=== PATIENT | male | born 1990 | race Caucasian/White ===

== ENCOUNTER 2016-04-27 16:59 | Emergency (ER) | payer OTHER ==
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
--- NOTE | 2016-04-28 08:52 | ED DISCHARGE INSTRUCTIONS ---
Patient: PRASAD SHERWOOD General Instructions [facility] VisitID: [id number] [place] [address] 26y, M Registration Date/Time: 04/27/2016 Moderate dental pain. INSTRUCTIONS Warnings: GENERAL WARNINGS: Return or contact your physician immediately if your condition worsens or changes unexpectedly, if not improving as expected, or if other problems arise. Specifically return if problem worsens. Prescription Medications: Penicillin V 500mg: take 1 tab orally every 6 hours for 10 days. Dispense forty (40). No refill Ultram 50 mg tablets: take 1-2 orally every 6 hours as needed for pain. Dispense twenty (20). No refills. Substitution is permissible. Follow-up: Follow up with a dentist in about three days even if well. Call for an appointment. Summary of care provided to patient. Understanding of the discharge instructions verbalized by patient. ADDITIONAL INFORMATION Dental Pain A crack or cavity in the tooth, which exposes the sensitive inner area of the tooth can cause tooth pain. An infection in the gum or the root of the tooth can cause pain and swelling. The pain is often made worse by drinking hot or cold fluids, or biting on hard foods. Pain may spread from the tooth to the ear or jaw on the same side. Home Care: Avoid hot and cold foods and liquids since your tooth may be sensitive to temperature changes. If your tooth is chipped or cracked, or if there is a large open cavity, apply OIL OF CLOVES (available fjij-yjj-hlegrsy in drug stores) directly to the tooth to reduce pain. Some pharmacies carry an zqgl-hds-xceixva "toothache kit." This contains a paste, which can be applied over the exposed tooth to decrease sensitivity. A cold pack on your jaw over the sore area may help reduce pain. You may use acetaminophen (Tylenol) or ibuprofen (Motrin, Advil) to control pain, unless another medicine was prescribed. [ NOTE: If you have chronic liver or kidney disease or ever had a stomach ulcer or GI bleeding, talk with your doctor before using these medicines.] If you have signs of an infection, an antibiotic will be given. Take it as directed. Follow-Up as directed with a dentist. Your pain may go away with the treatment given. However, only a dentist can fully evaluate and treat the cause and prevent the pain from coming back again. TOOTHACHE IS A SIGN OF DISEASE IN YOUR TOOTH AND SHOULD BE EXAMINED AND TREATED BY A DENTIST. Get Prompt Medical Attention if any of the following occur: Your face becomes swollen or red Pain worsens or spreads to the neck Fever over 100.4 F (38.0 C) Unusual drowsiness; headache or stiff neck; weakness or fainting Pus drains from the tooth Difficulty swallowing or breathing Penicillin V Potassium Oral tablet What is this medicine? PENICILLIN V (pen i SILL in V) is a penicillin antibiotic. It is used to treat certain kinds of bacterial infections. It will not work for colds, flu, or other viral infections. How should I use this medicine? Take this medicine by mouth with a full glass of water. Follow the directions on the prescription label. Take your medicine at regular intervals. Do not take your medicine more often than directed. Take all of your medicine as directed even if you think your are better. Do not skip doses or stop your medicine early. Talk to your twisting frame changer regarding the use of this medicine in children. While this drug may be prescribed for selected conditions, precautions do apply. What side effects may I notice from receiving this medicine? Side effects that you should report to your doctor or health interior plant caretaker as soon as possible: allergic reactions like skin rash or hives, swelling of the face, lips, or tongue breathing problems fever new symptoms of infection redness, blistering, peeling or loosening of the skin, including inside the mouth unusually weak or tired Side effects that usually do not require medical attention (report to your doctor or health interior plant caretaker if they continue or are bothersome): diarrhea headache nausea, vomiting sore mouth or tongue stomach upset What may interact with this medicine? control pills methotrexate other antibiotics probenecid some vaccines What if I miss a dose? If you miss a dose, take it as soon as you can. If it is almost time for your next dose, take only that dose. Do not take double or extra doses. Where should I keep my medicine? Keep out of the reach of children. Store at room temperature between 15 and 30 degrees C (59 and 86 degrees F). Keep container tightly closed. Throw away any unused medicine after the expiration date. What should I tell my health care provider before I take this medicine? They need to know if you have any of these conditions: asthma bowel disease, like colitis eczema kidney disease an unusual or allergic reaction to penicillin, cephalosporins, other antibiotics or medicines, foods, tartrazine or other dyes, or preservatives or trying to get breast-feeding What should I watch for while using this medicine? Tell your doctor or health interior plant caretaker if your symptoms do not improve. Do not treat diarrhea with over the counter products. Contact your doctor if you have diarrhea that lasts more than 2 days or if it is severe and watery. If you have diabetes, you may get a false-positive result for sugar in your urine. Check with your doctor or health interior plant caretaker. control pills may not work properly while you are taking this medicine. Talk to your doctor about using an extra method of control. Tramadol Hydrochloride Oral tablet What is this medicine? TRAMADOL (TRA ma dole) is a pain reliever. It is used to treat moderate to severe pain in adults. How should I use this medicine? Take this medicine by mouth with a full glass of water. Follow the directions on the prescription label. If the medicine upsets your stomach, take it with food or milk. Do not take more medicine than you are told to take. Talk to your twisting frame changer regarding the use of this medicine in children. Special care may be needed. What side effects may I notice from receiving this medicine? Side effects that you should report to your doctor or health interior plant caretaker as soon as possible: allergic reactions like skin rash, itching or hives, swelling of the face, lips, or tongue breathing difficulties, wheezing confusion itching light headedness or fainting spells redness, blistering, peeling or loosening of the skin, including inside the mouth seizures Side effects that usually do not require medical attention (report to your doctor or health interior plant caretaker if they continue or are bothersome): constipation dizziness drowsiness headache nausea, vomiting What may interact with this medicine? Do not take this medicine with any of the following medications: MAOIs like Carbex, Eldepryl, Marplan, Nardil, and Parnate This medicine may also interact with the following medications: alcohol or medicines that contain alcohol antihistamines benzodiazepines bupropion carbamazepine or oxcarbazepine clozapine cyclobenzaprine digoxin furazolidone linezolid medicines for depression, anxiety, or psychotic disturbances medicines for migraine headache like almotriptan, eletriptan, frovatriptan, naratriptan, rizatriptan, sumatriptan, zolmitriptan medicines for pain like pentazocine, buprenorphine, butorphanol, meperidine, nalbuphine, and propoxyphene medicines for sleep muscle relaxants naltrexone phenobarbital phenothiazines like perphenazine, thioridazine, chlorpromazine, mesoridazine, fluphenazine, prochlorperazine, promazine, and trifluoperazine procarbazine warfarin What if I miss a dose? If you miss a dose, take it as soon as you can. If it is almost time for your next dose, take only that dose. Do not take double or extra doses. Where should I keep my medicine? Keep out of the reach of children. Store at room temperature between 15 and 30 degrees C (59 and 86 degrees F). Keep container tightly closed. Throw away any unused medicine after the expiration date. What should I tell my health care provider before I take this medicine? They need to know if you have any of these conditions: brain tumor depression drug abuse or addiction head injury if you frequently drink alcohol containing drinks kidney disease or trouble passing urine liver disease lung disease, asthma, or breathing problems seizures or epilepsy suicidal thoughts, plans, or attempt; a previous suicide attempt by you or a family member an unusual or allergic reaction to tramadol, codeine, other medicines, foods, dyes, or preservatives or trying to get breast-feeding What should I watch for while using this medicine? Tell your doctor or health interior plant caretaker if your pain does not go away, if it gets worse, or if you have new or a different type of pain. You may develop tolerance to the medicine. Tolerance means that you will need a higher dose of the medicine for pain relief. Tolerance is normal and is expected if you take this medicine for a long time. Do not suddenly stop taking your medicine because you may develop a severe reaction. Your body becomes used to the medicine. This does NOT mean you are addicted. Addiction is a behavior related to getting and using a drug for a non-medical reason. If you have pain, you have a medical reason to take pain medicine. Your doctor will tell you how much medicine to take. If your doctor wants you to stop the medicine, the dose will be slowly lowered over time to avoid any side effects. You may get drowsy or dizzy. Do not drive, use machinery, or do anything that needs mental alertness until you know how this medicine affects you. Do not stand or sit up quickly, especially if you are an older patient. This reduces the risk of dizzy or fainting spells. Alcohol can increase or decrease the effects of this medicine. Avoid alcoholic drinks. You may have constipation. Try to have a bowel movement at least every 2 to 3 days. If you do not have a bowel movement for 3 days, call your doctor or health interior plant caretaker. Your mouth may get dry. Chewing sugarless gum or sucking hard candy, and drinking plenty of water may help. Contact your doctor if the problem does not go away or is severe. You have been given the following additional information: Dental Pain Penicillin V Potassium Oral tablet Tramadol Hydrochloride Oral tablet (Electronically signed by Nazanin Larsen A.R.N.P. 04/27/2016 19:31)
--- NOTE | 2016-04-28 08:52 | ED MED RECONCILIATION SUMMARY ---
Patient: PRASAD SHERWOOD Medication Reconciliation Report [facility] VisitID: [id number] [address] [place] [address] 26y, M Registration Date/Time: 04/27/2016 Weight: 92.9 kg Height/Length: 68 in. BMI: 31.1 ALLERGIES: No Known Drug Allergy The patient's Home Medications are listed below: NONE. The source(s) of the original Home Medication information: Not obtained. The following Medications were given to the patient in the Emergency Department: None. The following Medications were prescribed to the patient: Penicillin V 500mg: take 1 tab orally every 6 hours for 10 days. Dispense forty (40). No refill -- Nazanin Larsen A.R.N.P. Ultram 50 mg tablets: take 1-2 orally every 6 hours as needed for pain. Dispense twenty (20). No refills. Substitution is permissible. -- Nazanin Larsen A.R.N.P.
--- NOTE | 2016-04-28 08:52 | ED MAR SUMMARY ---
..... Medication Administration Record Merged With [facility] [address] [place], [place] [id number] Patient: PRASAD SHERWOOD Visit ID: [id number] 26y, M Weight: 92.9 kg Height/Length: 68 in BMI: 31.1 ALLERGIES: No Known Drug Allergy
--- NOTE | 2016-04-28 08:52 | ED DISCHARGE INSTRUCTIONS ---
Patient: PRASAD SHERWOOD General Instructions [facility] VisitID: [id number] [place] [address] 26y, M Registration Date/Time: 04/27/2016 Moderate dental pain. INSTRUCTIONS Warnings: GENERAL WARNINGS: Return or contact your physician immediately if your condition worsens or changes unexpectedly, if not improving as expected, or if other problems arise. Specifically return if problem worsens. Prescription Medications: Penicillin V 500mg: take 1 tab orally every 6 hours for 10 days. Dispense forty (40). No refill Ultram 50 mg tablets: take 1-2 orally every 6 hours as needed for pain. Dispense twenty (20). No refills. Substitution is permissible. Follow-up: Follow up with a dentist in about three days even if well. Call for an appointment. Summary of care provided to patient. Understanding of the discharge instructions verbalized by patient. ADDITIONAL INFORMATION Dental Pain A crack or cavity in the tooth, which exposes the sensitive inner area of the tooth can cause tooth pain. An infection in the gum or the root of the tooth can cause pain and swelling. The pain is often made worse by drinking hot or cold fluids, or biting on hard foods. Pain may spread from the tooth to the ear or jaw on the same side. Home Care: Avoid hot and cold foods and liquids since your tooth may be sensitive to temperature changes. If your tooth is chipped or cracked, or if there is a large open cavity, apply OIL OF CLOVES (available jywz-bnj-uddjiwa in drug stores) directly to the tooth to reduce pain. Some pharmacies carry an zfkh-omg-vpwlwui "toothache kit." This contains a paste, which can be applied over the exposed tooth to decrease sensitivity. A cold pack on your jaw over the sore area may help reduce pain. You may use acetaminophen (Tylenol) or ibuprofen (Motrin, Advil) to control pain, unless another medicine was prescribed. [ NOTE: If you have chronic liver or kidney disease or ever had a stomach ulcer or GI bleeding, talk with your doctor before using these medicines.] If you have signs of an infection, an antibiotic will be given. Take it as directed. Follow-Up as directed with a dentist. Your pain may go away with the treatment given. However, only a dentist can fully evaluate and treat the cause and prevent the pain from coming back again. TOOTHACHE IS A SIGN OF DISEASE IN YOUR TOOTH AND SHOULD BE EXAMINED AND TREATED BY A DENTIST. Get Prompt Medical Attention if any of the following occur: Your face becomes swollen or red Pain worsens or spreads to the neck Fever over 100.4 F (38.0 C) Unusual drowsiness; headache or stiff neck; weakness or fainting Pus drains from the tooth Difficulty swallowing or breathing Penicillin V Potassium Oral tablet What is this medicine? PENICILLIN V (pen i SILL in V) is a penicillin antibiotic. It is used to treat certain kinds of bacterial infections. It will not work for colds, flu, or other viral infections. How should I use this medicine? Take this medicine by mouth with a full glass of water. Follow the directions on the prescription label. Take your medicine at regular intervals. Do not take your medicine more often than directed. Take all of your medicine as directed even if you think your are better. Do not skip doses or stop your medicine early. Talk to your warp tier regarding the use of this medicine in children. While this drug may be prescribed for selected conditions, precautions do apply. What side effects may I notice from receiving this medicine? Side effects that you should report to your doctor or health caregivers non medical as soon as possible: allergic reactions like skin rash or hives, swelling of the face, lips, or tongue breathing problems fever new symptoms of infection redness, blistering, peeling or loosening of the skin, including inside the mouth unusually weak or tired Side effects that usually do not require medical attention (report to your doctor or health caregivers non medical if they continue or are bothersome): diarrhea headache nausea, vomiting sore mouth or tongue stomach upset What may interact with this medicine? control pills methotrexate other antibiotics probenecid some vaccines What if I miss a dose? If you miss a dose, take it as soon as you can. If it is almost time for your next dose, take only that dose. Do not take double or extra doses. Where should I keep my medicine? Keep out of the reach of children. Store at room temperature between 15 and 30 degrees C (59 and 86 degrees F). Keep container tightly closed. Throw away any unused medicine after the expiration date. What should I tell my health care provider before I take this medicine? They need to know if you have any of these conditions: asthma bowel disease, like colitis eczema kidney disease an unusual or allergic reaction to penicillin, cephalosporins, other antibiotics or medicines, foods, tartrazine or other dyes, or preservatives or trying to get breast-feeding What should I watch for while using this medicine? Tell your doctor or health caregivers non medical if your symptoms do not improve. Do not treat diarrhea with over the counter products. Contact your doctor if you have diarrhea that lasts more than 2 days or if it is severe and watery. If you have diabetes, you may get a false-positive result for sugar in your urine. Check with your doctor or health caregivers non medical. control pills may not work properly while you are taking this medicine. Talk to your doctor about using an extra method of control. Tramadol Hydrochloride Oral tablet What is this medicine? TRAMADOL (TRA ma dole) is a pain reliever. It is used to treat moderate to severe pain in adults. How should I use this medicine? Take this medicine by mouth with a full glass of water. Follow the directions on the prescription label. If the medicine upsets your stomach, take it with food or milk. Do not take more medicine than you are told to take. Talk to your warp tier regarding the use of this medicine in children. Special care may be needed. What side effects may I notice from receiving this medicine? Side effects that you should report to your doctor or health caregivers non medical as soon as possible: allergic reactions like skin rash, itching or hives, swelling of the face, lips, or tongue breathing difficulties, wheezing confusion itching light headedness or fainting spells redness, blistering, peeling or loosening of the skin, including inside the mouth seizures Side effects that usually do not require medical attention (report to your doctor or health caregivers non medical if they continue or are bothersome): constipation dizziness drowsiness headache nausea, vomiting What may interact with this medicine? Do not take this medicine with any of the following medications: MAOIs like Carbex, Eldepryl, Marplan, Nardil, and Parnate This medicine may also interact with the following medications: alcohol or medicines that contain alcohol antihistamines benzodiazepines bupropion carbamazepine or oxcarbazepine clozapine cyclobenzaprine digoxin furazolidone linezolid medicines for depression, anxiety, or psychotic disturbances medicines for migraine headache like almotriptan, eletriptan, frovatriptan, naratriptan, rizatriptan, sumatriptan, zolmitriptan medicines for pain like pentazocine, buprenorphine, butorphanol, meperidine, nalbuphine, and propoxyphene medicines for sleep muscle relaxants naltrexone phenobarbital phenothiazines like perphenazine, thioridazine, chlorpromazine, mesoridazine, fluphenazine, prochlorperazine, promazine, and trifluoperazine procarbazine warfarin What if I miss a dose? If you miss a dose, take it as soon as you can. If it is almost time for your next dose, take only that dose. Do not take double or extra doses. Where should I keep my medicine? Keep out of the reach of children. Store at room temperature between 15 and 30 degrees C (59 and 86 degrees F). Keep container tightly closed. Throw away any unused medicine after the expiration date. What should I tell my health care provider before I take this medicine? They need to know if you have any of these conditions: brain tumor depression drug abuse or addiction head injury if you frequently drink alcohol containing drinks kidney disease or trouble passing urine liver disease lung disease, asthma, or breathing problems seizures or epilepsy suicidal thoughts, plans, or attempt; a previous suicide attempt by you or a family member an unusual or allergic reaction to tramadol, codeine, other medicines, foods, dyes, or preservatives or trying to get breast-feeding What should I watch for while using this medicine? Tell your doctor or health caregivers non medical if your pain does not go away, if it gets worse, or if you have new or a different type of pain. You may develop tolerance to the medicine. Tolerance means that you will need a higher dose of the medicine for pain relief. Tolerance is normal and is expected if you take this medicine for a long time. Do not suddenly stop taking your medicine because you may develop a severe reaction. Your body becomes used to the medicine. This does NOT mean you are addicted. Addiction is a behavior related to getting and using a drug for a non-medical reason. If you have pain, you have a medical reason to take pain medicine. Your doctor will tell you how much medicine to take. If your doctor wants you to stop the medicine, the dose will be slowly lowered over time to avoid any side effects. You may get drowsy or dizzy. Do not drive, use machinery, or do anything that needs mental alertness until you know how this medicine affects you. Do not stand or sit up quickly, especially if you are an older patient. This reduces the risk of dizzy or fainting spells. Alcohol can increase or decrease the effects of this medicine. Avoid alcoholic drinks. You may have constipation. Try to have a bowel movement at least every 2 to 3 days. If you do not have a bowel movement for 3 days, call your doctor or health caregivers non medical. Your mouth may get dry. Chewing sugarless gum or sucking hard candy, and drinking plenty of water may help. Contact your doctor if the problem does not go away or is severe. You have been given the following additional information: Dental Pain Penicillin V Potassium Oral tablet Tramadol Hydrochloride Oral tablet (Electronically signed by Nazanin Larsen A.R.N.P. 04/27/2016 19:31)
--- NOTE | 2016-04-28 08:52 | ED MAR SUMMARY ---
..... Medication Administration Record [facility] [address] [place], [place] [id number] Patient: PRASAD SHERWOOD Visit ID: [id number] 26y, M Weight: 92.9 kg Height/Length: 68 in BMI: 31.1 ALLERGIES: No Known Drug Allergy
--- NOTE | 2016-04-28 08:52 | ED MED RECONCILIATION SUMMARY ---
Patient: PRASAD SHERWOOD Medication Reconciliation Report [facility] VisitID: [id number] [address] [place] [address] 26y, M Registration Date/Time: 04/27/2016 Weight: 92.9 kg Height/Length: 68 in. BMI: 31.1 ALLERGIES: No Known Drug Allergy The patient's Home Medications are listed below: NONE. The source(s) of the original Home Medication information: Not obtained. The following Medications were given to the patient in the Emergency Department: None. The following Medications were prescribed to the patient: Penicillin V 500mg: take 1 tab orally every 6 hours for 10 days. Dispense forty (40). No refill -- Nazanin Larsen A.R.N.P. Ultram 50 mg tablets: take 1-2 orally every 6 hours as needed for pain. Dispense twenty (20). No refills. Substitution is permissible. -- Nazanin Larsen A.R.N.P.
== END 2016-04-27 17:22 | disposition home or self-care (01) ==
LOC: ED SRH 16:59
DX: K08.89 Other specified disorders of teeth and supporting structures (principal); F17.200 Nicotine dependence, unspecified, uncomplicated

== ENCOUNTER 2016-05-19 17:35 | Emergency (ER) | payer OTHER ==
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
--- NOTE | 2016-05-19 23:00 | ED MAR SUMMARY ---
..... Medication Administration Record [facility] [address] [place] [id number] Patient: PRASAD SHERWOOD Visit ID: [id number] 26y, M Weight: 108.8 kg Height/Length: 72 in BMI: 32.6 ALLERGIES: No Known Drug Allergy
--- NOTE | 2016-05-19 23:00 | ED MED RECONCILIATION SUMMARY ---
Patient: PRASAD SHERWOOD Medication Reconciliation Report [facility] VisitID: [id number] [place] [address] 26y, M Registration Date/Time: 05/19/2016 Weight: 108.8 kg Height/Length: 72 in. BMI: 32.6 ALLERGIES: No Known Drug Allergy The patient's Home Medications are listed below: THE FOLLOWING MEDICATIONS NEED TO BE RECONCILED: Ibuprofen Oral 800 mg The source(s) of the original Home Medication information: patient The following Medications were given to the patient in the Emergency Department: None. The following Medications were prescribed to the patient: Acetaminophen (available over the counter): take according to label instructions. -- Ian Virk DO Penicillin V 500mg: take 1 tab orally every 6 hours for 10 days. Dispense forty (40). No refill -- Ian Virk DO Ibuprofen 600mg tablets: take 1 tablet orally every 8 hours as needed for pain. Dispense thirty (30). No refills. -- Ian Virk DO Ultram 50 mg tablets: take 1-2 orally every 6 hours as needed for pain. Dispense twenty (20). No refills. Substitution is permissible. -- Ian Virk DO
--- NOTE | 2016-05-19 23:00 | ED DISCHARGE INSTRUCTIONS ---
Patient: PRASAD SHERWOOD General Instructions [facility] VisitID: [id number] [address], [place] [address] 26y, M Registration Date/Time: 05/19/2016 Moderate dental pain. Chronic substance abuse- tobacco (cigarettes), marijuana. No intoxication, anxiety or drug induced mood disorder. INSTRUCTIONS Do not work for two days. Drink plenty of fluids. (Please see the DENTAL REFERRAL LIST). Warnings: Further evaluation is necessary. It is very important to follow up with a physician. SEDATIVE MEDICATION: You were given sedative medication during your visit. Do not drive or operate dangerous machinery. CONTROLLED SUBSTANCE WARNINGS. GENERAL WARNINGS: Return or contact your physician immediately if your condition worsens or changes unexpectedly, if not improving as expected, or if other problems arise. Prescription Medications: Penicillin V 500mg: take 1 tab orally every 6 hours for 10 days. Dispense forty (40). No refill Ibuprofen 600mg tablets: take 1 tablet orally every 8 hours as needed for pain. Dispense thirty (30). No refills. Ultram 50 mg tablets: take 1-2 orally every 6 hours as needed for pain. Dispense twenty (20). No refills. Substitution is permissible. OTC Medications: Acetaminophen (available over the counter): take according to label instructions. Follow-up: Follow up with your doctor at [facility] in [facility] in about three days. Call for the next available appointment. Follow up with a dentist tomorrow. Follow-up with: [facility], , , [address] [place] [address], , [place], ; [facility], , , [address], [facility], [address]; [facility], [facility], , [address] [place] [address] Follow up. Call for the next available appointment. ADDITIONAL INFORMATION Dental Pain A crack or cavity in the tooth, which exposes the sensitive inner area of the tooth can cause tooth pain. An infection in the gum or the root of the tooth can cause pain and swelling. The pain is often made worse by drinking hot or cold fluids, or biting on hard foods. Pain may spread from the tooth to the ear or jaw on the same side. Home Care: Avoid hot and cold foods and liquids since your tooth may be sensitive to temperature changes. If your tooth is chipped or cracked, or if there is a large open cavity, apply OIL OF CLOVES (available lbst-vnc-zjcyctv in drug stores) directly to the tooth to reduce pain. Some pharmacies carry an ibef-hyj-rxshpww "toothache kit." This contains a paste, which can be applied over the exposed tooth to decrease sensitivity. A cold pack on your jaw over the sore area may help reduce pain. You may use acetaminophen (Tylenol) or ibuprofen (Motrin, Advil) to control pain, unless another medicine was prescribed. [ NOTE: If you have chronic liver or kidney disease or ever had a stomach ulcer or GI bleeding, talk with your doctor before using these medicines.] If you have signs of an infection, an antibiotic will be given. Take it as directed. Follow-Up as directed with a dentist. Your pain may go away with the treatment given. However, only a dentist can fully evaluate and treat the cause and prevent the pain from coming back again. TOOTHACHE IS A SIGN OF DISEASE IN YOUR TOOTH AND SHOULD BE EXAMINED AND TREATED BY A DENTIST. Get Prompt Medical Attention if any of the following occur: Your face becomes swollen or red Pain worsens or spreads to the neck Fever over 100.4 F (38.0 C) Unusual drowsiness; headache or stiff neck; weakness or fainting Pus drains from the tooth Difficulty swallowing or breathing Dental Cavity A dental cavity is a pit or crater in the enamel surface of the tooth. This exposes the sensitive inner layer of the tooth and causes pain. If untreated, the cavity will get bigger and may cause an infection or abscess in the root of the tooth. An infection in the tooth is a much more serious problem and may require a root canal or removal of the entire tooth. The tooth pain may be made worse by drinking hot or cold fluids. It may spread from the tooth to the ear or jaw on the same side. Home Care: Avoid hot and cold foods, and liquids since your tooth may be sensitive to temperature changes. If your tooth is chipped or cracked, or if there is a large open cavity, apply OIL OF CLOVES (available bgtf-tew-jzxinfo in drug stores) directly to the tooth to reduce pain. Some pharmacies carry an digv-fvh-qqlwbzt "toothache kit." This contains oil of cloves and a paste, which can be applied over the exposed tooth to decrease sensitivity. An ice pack on your jaw over the sore area may help to reduce pain. You may use acetaminophen (Tylenol) or ibuprofen (Motrin, Advil) to control pain, unless another pain medicine was prescribed. [ NOTE: If you have liver disease or ever had a stomach ulcer, talk with your doctor before using these medicines.] If you have signs of an infection, an antibiotic will be given. Take it as directed. Follow-Up with your dentist as directed. Although your pain may go away with the treatment given, only a dentist can fully evaluate and treat this problem to prevent further tooth damage. Get Prompt Medical Attention if any of the following occur: Redness or swelling of the face Pain worsens or spreads to the neck Fever over 100.5 F (38C) Unusual drowsiness; headache or stiff neck; weakness or fainting Pus drains from the tooth or gum Difficulty swallowing or breathing Marijuana Abuse Marijuana is the most widely used illegal drug in the [place]. It is called by various names such as pot, weed, blunts, grass, reefer, ganja, hash, hashish. It is usually smoked but can be mixed with foods or brewed as a tea. It is sometimes sold with PCP (Karthik Dust) or amphetamine mixed in it. These drugs can cause other harmful side effects. Marijuana can cause the following effects: Changes in mood (stimulated, happy, drowsy, depressed, paranoid) Hallucinations Increased heart rate and blood pressure Increased appetite Time distortion, difficulty concentrating, impaired memory Lung damage (similar to cigarettes with chronic cough, wheezing, frequent colds and bronchitis) You can become psychologically dependent on marijuana. That means the craving to use the drug is emotional or psychological rather than due to physical withdrawal. Is Marijuana Running Your Life? Here are some of the signs: Relying on marijuana to feel good, forget problems, deal with stress or to relax Wanting to be alone most of the time or only with others who use drugs Losing interest in things that used to be important Changes in school or job performance or attendance Spending a lot of time thinking about how to get marijuana Stealing or selling your things so you can buy marijuana Unable to stop using even though you may want to quit Increasing anxiety, anger,or depression Sleeping too much, changes in eating habits (weight loss or gain) Needing to use more to get the same effect Home Care Once you have become addicted to any drug, quitting is hard to do. Most people find they can't quit without help. So, dont try to do this alone. Talk to someone you trust who can support you. Seek professional help. Avoid people and places where drugs are used. That only increases the temptation to use. Follow Up with your doctor or as advised by our staff. For more information or a referral to a treatment center in your area, contact: Your local mental health center or the National Alcohol and Substance Abuse Information Center (392)-737-2533 www.addictioncareEDP [employer] [place] on Alcoholism and Drug Dependence 713-808-YBXE www.ncadd.org Marijuana Anonymous 601-645-4747 www.marijuana-anonymous.org Get Prompt Medical Attention if any of the following occur: You feel extreme depression, fear, anxiety, or anger toward yourself or others You feel out of control You feel that you may try to harm yourself or another Penicillin V Potassium Oral tablet What is this medicine? PENICILLIN V (pen i SILL in V) is a penicillin antibiotic. It is used to treat certain kinds of bacterial infections. It will not work for colds, flu, or other viral infections. How should I use this medicine? Take this medicine by mouth with a full glass of water. Follow the directions on the prescription label. Take your medicine at regular intervals. Do not take your medicine more often than directed. Take all of your medicine as directed even if you think your are better. Do not skip doses or stop your medicine early. Talk to your optometrist regarding the use of this medicine in children. While this drug may be prescribed for selected conditions, precautions do apply. What side effects may I notice from receiving this medicine? Side effects that you should report to your doctor or health behavioral health care manager as soon as possible: allergic reactions like skin rash or hives, swelling of the face, lips, or tongue breathing problems fever new symptoms of infection redness, blistering, peeling or loosening of the skin, including inside the mouth unusually weak or tired Side effects that usually do not require medical attention (report to your doctor or health behavioral health care manager if they continue or are bothersome): diarrhea headache nausea, vomiting sore mouth or tongue stomach upset What may interact with this medicine? control pills methotrexate other antibiotics probenecid some vaccines What if I miss a dose? If you miss a dose, take it as soon as you can. If it is almost time for your next dose, take only that dose. Do not take double or extra doses. Where should I keep my medicine? Keep out of the reach of children. Store at room temperature between 15 and 30 degrees C (59 and 86 degrees F). Keep container tightly closed. Throw away any unused medicine after the expiration date. What should I tell my health care provider before I take this medicine? They need to know if you have any of these conditions: asthma bowel disease, like colitis eczema kidney disease an unusual or allergic reaction to penicillin, cephalosporins, other antibiotics or medicines, foods, tartrazine or other dyes, or preservatives or trying to get breast-feeding What should I watch for while using this medicine? Tell your doctor or health behavioral health care manager if your symptoms do not improve. Do not treat diarrhea with over the counter products. Contact your doctor if you have diarrhea that lasts more than 2 days or if it is severe and watery. If you have diabetes, you may get a false-positive result for sugar in your urine. Check with your doctor or health behavioral health care manager. control pills may not work properly while you are taking this medicine. Talk to your doctor about using an extra method of control. Ibuprofen Oral tablet What is this medicine? IBUPROFEN (eye BYOO proe fen) is a non-steroidal anti-inflammatory drug (NSAID). It is used for dental pain, fever, headaches or migraines, osteoarthritis, rheumatoid arthritis, or painful monthly periods. It can also relieve minor aches and pains caused by a cold, flu, or sore throat. How should I use this medicine? Take this medicine by mouth with a glass of water. Follow the directions on the prescription label. Take this medicine with food if your stomach gets upset. Try to not lie down for at least 10 minutes after you take the medicine. Take your medicine at regular intervals. Do not take your medicine more often than directed. A special MedGuide will be given to you by the pharmacist with each prescription and refill. Be sure to read this information carefully each time. Talk to your optometrist regarding the use of this medicine in children. Special care may be needed. What side effects may I notice from receiving this medicine? Side effects that you should report to your doctor or health behavioral health care manager as soon as possible: allergic reactions like skin rash, itching or hives, swelling of the face, lips, or tongue black or bloody stools, blood in the urine or in vomit breathing problems changes in vision chest pain general ill feeling or flu-like symptoms nausea or vomiting redness, blistering, peeling or loosening of the skin, including inside the mouth slurred speech or weakness on one side of the body stomach pain unexplained weight gain or swelling unusually weak or tired yellowing of eyes or skin Side effects that usually do not require medical attention (report to your doctor or health behavioral health care manager if they continue or are bothersome): constipation or diarrhea dizziness gas or heartburn stomach upset What may interact with this medicine? Do not take this medicine with any of the following medications: cidofovir ketorolac methotrexate pemetrexed This medicine may also interact with the following medications: alcohol aspirin diuretics lithium other drugs for inflammation like prednisone warfarin What if I miss a dose? If you miss a dose, take it as soon as you can. If it is almost time for your next dose, take only that dose. Do not take double or extra doses. Where should I keep my medicine? Keep out of the reach of children. Store at room temperature between 15 and 30 degrees C (59 and 86 degrees F). Keep container tightly closed. Throw away any unused medicine after the expiration date. What should I tell my health care provider before I take this medicine? They need to know if you have any of these conditions: asthma cigarette smoker drink more than 3 alcohol containing drinks a day heart disease or circulation problems such as heart failure or leg edema (fluid retention) high blood pressure kidney disease liver disease stomach bleeding or ulcers an unusual or allergic reaction to ibuprofen, aspirin, other NSAIDS, other medicines, foods, dyes, or preservatives or trying to get breast-feeding What should I watch for while using this medicine? Tell your doctor or healthcare professional if your symptoms do not start to get better or if they get worse. This medicine does not prevent heart attack or stroke. In fact, this medicine may increase the chance of a heart attack or stroke. The chance may increase with longer use of this medicine and in people who have heart disease. If you take aspirin to prevent heart attack or stroke, talk with your doctor or health behavioral health care manager. Do not take other medicines that contain aspirin, ibuprofen, or naproxen with this medicine. Side effects such as stomach upset, nausea, or ulcers may be more likely to occur. Many medicines available without a prescription should not be taken with this medicine. This medicine can cause ulcers and bleeding in the stomach and intestines at any time during treatment. Ulcers and bleeding can happen without warning symptoms and can cause . To reduce your risk, do not smoke cigarettes or drink alcohol while you are taking this medicine. You may get drowsy or dizzy. Do not drive, use machinery, or do anything that needs mental alertness until you know how this medicine affects you. Do not stand or sit up quickly, especially if you are an older patient. This reduces the risk of dizzy or fainting spells. This medicine can cause you to bleed more easily. Try to avoid damage to your teeth and gums when you brush or floss your teeth. Tramadol Hydrochloride Oral tablet What is this medicine? TRAMADOL (TRA ma dole) is a pain reliever. It is used to treat moderate to severe pain in adults. How should I use this medicine? Take this medicine by mouth with a full glass of water. Follow the directions on the prescription label. If the medicine upsets your stomach, take it with food or milk. Do not take more medicine than you are told to take. Talk to your optometrist regarding the use of this medicine in children. Special care may be needed. What side effects may I notice from receiving this medicine? Side effects that you should report to your doctor or health behavioral health care manager as soon as possible: allergic reactions like skin rash, itching or hives, swelling of the face, lips, or tongue breathing difficulties, wheezing confusion itching light headedness or fainting spells redness, blistering, peeling or loosening of the skin, including inside the mouth seizures Side effects that usually do not require medical attention (report to your doctor or health behavioral health care manager if they continue or are bothersome): constipation dizziness drowsiness headache nausea, vomiting What may interact with this medicine? Do not take this medicine with any of the following medications: MAOIs like Carbex, Eldepryl, Marplan, Nardil, and Parnate This medicine may also interact with the following medications: alcohol or medicines that contain alcohol antihistamines benzodiazepines bupropion carbamazepine or oxcarbazepine clozapine cyclobenzaprine digoxin furazolidone linezolid medicines for depression, anxiety, or psychotic disturbances medicines for migraine headache like almotriptan, eletriptan, frovatriptan, naratriptan, rizatriptan, sumatriptan, zolmitriptan medicines for pain like pentazocine, buprenorphine, butorphanol, meperidine, nalbuphine, and propoxyphene medicines for sleep muscle relaxants naltrexone phenobarbital phenothiazines like perphenazine, thioridazine, chlorpromazine, mesoridazine, fluphenazine, prochlorperazine, promazine, and trifluoperazine procarbazine warfarin What if I miss a dose? If you miss a dose, take it as soon as you can. If it is almost time for your next dose, take only that dose. Do not take double or extra doses. Where should I keep my medicine? Keep out of the reach of children. Store at room temperature between 15 and 30 degrees C (59 and 86 degrees F). Keep container tightly closed. Throw away any unused medicine after the expiration date. What should I tell my health care provider before I take this medicine? They need to know if you have any of these conditions: brain tumor depression drug abuse or addiction head injury if you frequently drink alcohol containing drinks kidney disease or trouble passing urine liver disease lung disease, asthma, or breathing problems seizures or epilepsy suicidal thoughts, plans, or attempt; a previous suicide attempt by you or a family member an unusual or allergic reaction to tramadol, codeine, other medicines, foods, dyes, or preservatives or trying to get breast-feeding What should I watch for while using this medicine? Tell your doctor or health behavioral health care manager if your pain does not go away, if it gets worse, or if you have new or a different type of pain. You may develop tolerance to the medicine. Tolerance means that you will need a higher dose of the medicine for pain relief. Tolerance is normal and is expected if you take this medicine for a long time. Do not suddenly stop taking your medicine because you may develop a severe reaction. Your body becomes used to the medicine. This does NOT mean you are addicted. Addiction is a behavior related to getting and using a drug for a non-medical reason. If you have pain, you have a medical reason to take pain medicine. Your doctor will tell you how much medicine to take. If your doctor wants you to stop the medicine, the dose will be slowly lowered over time to avoid any side effects. You may get drowsy or dizzy. Do not drive, use machinery, or do anything that needs mental alertness until you know how this medicine affects you. Do not stand or sit up quickly, especially if you are an older patient. This reduces the risk of dizzy or fainting spells. Alcohol can increase or decrease the effects of this medicine. Avoid alcoholic drinks. You may have constipation. Try to have a bowel movement at least every 2 to 3 days. If you do not have a bowel movement for 3 days, call your doctor or health behavioral health care manager. Your mouth may get dry. Chewing sugarless gum or sucking hard candy, and drinking plenty of water may help. Contact your doctor if the problem does not go away or is severe. Acetaminophen Oral tablet What is this medicine? ACETAMINOPHEN (a set a TETE moraima fen) is a pain reliever. It is used to treat mild pain and fever. How should I use this medicine? Take this medicine by mouth with a glass of water. Follow the directions on the package or prescription label. Take your medicine at regular intervals. Do not take your medicine more often than directed. Talk to your optometrist regarding the use of this medicine in children. While this drug may be prescribed for children as young as 6 years of age for selected conditions, precautions do apply. What side effects may I notice from receiving this medicine? Side effects that you should report to your doctor or health behavioral health care manager as soon as possible: allergic reactions like skin rash, itching or hives, swelling of the face, lips, or tongue breathing problems fever or sore throat redness, blistering, peeling or loosening of the skin, including inside the mouth trouble passing urine or change in the amount of urine unusual bleeding or bruising unusually weak or tired yellowing of the eyes or skin Side effects that usually do not require medical attention (report to your doctor or health behavioral health care manager if they continue or are bothersome): headache nausea, stomach upset What may interact with this medicine? alcohol imatinib isoniazid other medicines with acetaminophen What if I miss a dose? If you miss a dose, take it as soon as you can. If it is almost time for your next dose, take only that dose. Do not take double or extra doses. Where should I keep my medicine? Keep out of reach of children. Store at room temperature between 20 and 25 degrees C (68 and 77 degrees F). Protect from moisture and heat. Throw away any unused medicine after the expiration date. What should I tell my health care provider before I take this medicine? They need to know if you have any of these conditions: if you frequently drink alcohol containing drinks liver disease an unusual or allergic reaction to acetaminophen, other medicines, foods, dyes or preservatives or trying to get breast-feeding What should I watch for while using this medicine? Tell your doctor or health behavioral health care manager if the pain lasts more than 10 days (5 days for children), if it gets worse, or if there is a new or different kind of pain. Also, check with your doctor if a fever lasts for more than 3 days. Do not take other medicines that contain acetaminophen with this medicine. Always read labels carefully. If you have questions, ask your doctor or pharmacist. If you take too much acetaminophen get medical help right away. Too much acetaminophen can be very dangerous and cause liver damage. Even if you do not have symptoms, it is important to get help right away. You have been given the following additional information: Dental Pain Dental Cavity Marijuana Abuse Penicillin V Potassium Oral tablet Ibuprofen Oral tablet Tramadol Hydrochloride Oral tablet Acetaminophen Oral tablet Do not work for two days. (Electronically signed by Ian Virk DO 05/19/2016 22:27)
--- NOTE | 2016-05-19 23:00 | ED MAR SUMMARY ---
..... Medication Administration Record [facility] [address], [place] [id number] Patient: PRASAD SHERWOOD Visit ID: [id number] 26y, M Weight: 108.8 kg Height/Length: 72 in BMI: 32.6 ALLERGIES: No Known Drug Allergy
--- NOTE | 2016-05-19 23:00 | ED MED RECONCILIATION SUMMARY ---
Patient: PRASAD SHERWOOD Medication Reconciliation Report [facility] VisitID: [id number] [place] [address] 26y, M Registration Date/Time: 05/19/2016 Weight: 108.8 kg Height/Length: 72 in. BMI: 32.6 ALLERGIES: No Known Drug Allergy The patient's Home Medications are listed below: THE FOLLOWING MEDICATIONS NEED TO BE RECONCILED: Ibuprofen Oral 800 mg The source(s) of the original Home Medication information: patient The following Medications were given to the patient in the Emergency Department: None. The following Medications were prescribed to the patient: Acetaminophen (available over the counter): take according to label instructions. -- Ian Virk DO Penicillin V 500mg: take 1 tab orally every 6 hours for 10 days. Dispense forty (40). No refill -- Ian Virk DO Ibuprofen 600mg tablets: take 1 tablet orally every 8 hours as needed for pain. Dispense thirty (30). No refills. -- Ian Virk DO Ultram 50 mg tablets: take 1-2 orally every 6 hours as needed for pain. Dispense twenty (20). No refills. Substitution is permissible. -- Ian Virk DO
--- NOTE | 2016-05-19 23:00 | ED DISCHARGE INSTRUCTIONS ---
Patient: PRASAD SHERWOOD General Instructions [facility] VisitID: [id number] [address], [place] [address] 26y, M Registration Date/Time: 05/19/2016 Moderate dental pain. Chronic substance abuse- tobacco (cigarettes), marijuana. No intoxication, anxiety or drug induced mood disorder. INSTRUCTIONS Do not work for two days. Drink plenty of fluids. (Please see the DENTAL REFERRAL LIST). Warnings: Further evaluation is necessary. It is very important to follow up with a physician. SEDATIVE MEDICATION: You were given sedative medication during your visit. Do not drive or operate dangerous machinery. CONTROLLED SUBSTANCE WARNINGS. GENERAL WARNINGS: Return or contact your physician immediately if your condition worsens or changes unexpectedly, if not improving as expected, or if other problems arise. Prescription Medications: Penicillin V 500mg: take 1 tab orally every 6 hours for 10 days. Dispense forty (40). No refill Ibuprofen 600mg tablets: take 1 tablet orally every 8 hours as needed for pain. Dispense thirty (30). No refills. Ultram 50 mg tablets: take 1-2 orally every 6 hours as needed for pain. Dispense twenty (20). No refills. Substitution is permissible. OTC Medications: Acetaminophen (available over the counter): take according to label instructions. Follow-up: Follow up with your doctor at [facility] in [facility] in about three days. Call for the next available appointment. Follow up with a dentist tomorrow. Follow-up with: [facility], , , [address] [place] [address], , [place], ; [facility], , , [address], [facility], [id number]; [facility], [facility], , [address] [place] [address] Follow up. Call for the next available appointment. ADDITIONAL INFORMATION Dental Pain A crack or cavity in the tooth, which exposes the sensitive inner area of the tooth can cause tooth pain. An infection in the gum or the root of the tooth can cause pain and swelling. The pain is often made worse by drinking hot or cold fluids, or biting on hard foods. Pain may spread from the tooth to the ear or jaw on the same side. Home Care: Avoid hot and cold foods and liquids since your tooth may be sensitive to temperature changes. If your tooth is chipped or cracked, or if there is a large open cavity, apply OIL OF CLOVES (available afyi-grm-onswwnw in drug stores) directly to the tooth to reduce pain. Some pharmacies carry an gpbf-hfp-guqxopn "toothache kit." This contains a paste, which can be applied over the exposed tooth to decrease sensitivity. A cold pack on your jaw over the sore area may help reduce pain. You may use acetaminophen (Tylenol) or ibuprofen (Motrin, Advil) to control pain, unless another medicine was prescribed. [ NOTE: If you have chronic liver or kidney disease or ever had a stomach ulcer or GI bleeding, talk with your doctor before using these medicines.] If you have signs of an infection, an antibiotic will be given. Take it as directed. Follow-Up as directed with a dentist. Your pain may go away with the treatment given. However, only a dentist can fully evaluate and treat the cause and prevent the pain from coming back again. TOOTHACHE IS A SIGN OF DISEASE IN YOUR TOOTH AND SHOULD BE EXAMINED AND TREATED BY A DENTIST. Get Prompt Medical Attention if any of the following occur: Your face becomes swollen or red Pain worsens or spreads to the neck Fever over 100.4 F (38.0 C) Unusual drowsiness; headache or stiff neck; weakness or fainting Pus drains from the tooth Difficulty swallowing or breathing Dental Cavity A dental cavity is a pit or crater in the enamel surface of the tooth. This exposes the sensitive inner layer of the tooth and causes pain. If untreated, the cavity will get bigger and may cause an infection or abscess in the root of the tooth. An infection in the tooth is a much more serious problem and may require a root canal or removal of the entire tooth. The tooth pain may be made worse by drinking hot or cold fluids. It may spread from the tooth to the ear or jaw on the same side. Home Care: Avoid hot and cold foods, and liquids since your tooth may be sensitive to temperature changes. If your tooth is chipped or cracked, or if there is a large open cavity, apply OIL OF CLOVES (available swbw-wba-xzdujxf in drug stores) directly to the tooth to reduce pain. Some pharmacies carry an xkwl-one-zhdunct "toothache kit." This contains oil of cloves and a paste, which can be applied over the exposed tooth to decrease sensitivity. An ice pack on your jaw over the sore area may help to reduce pain. You may use acetaminophen (Tylenol) or ibuprofen (Motrin, Advil) to control pain, unless another pain medicine was prescribed. [ NOTE: If you have liver disease or ever had a stomach ulcer, talk with your doctor before using these medicines.] If you have signs of an infection, an antibiotic will be given. Take it as directed. Follow-Up with your dentist as directed. Although your pain may go away with the treatment given, only a dentist can fully evaluate and treat this problem to prevent further tooth damage. Get Prompt Medical Attention if any of the following occur: Redness or swelling of the face Pain worsens or spreads to the neck Fever over 100.5 F (38C) Unusual drowsiness; headache or stiff neck; weakness or fainting Pus drains from the tooth or gum Difficulty swallowing or breathing Marijuana Abuse Marijuana is the most widely used illegal drug in the [place]. It is called by various names such as pot, weed, blunts, grass, reefer, ganja, hash, hashish. It is usually smoked but can be mixed with foods or brewed as a tea. It is sometimes sold with PCP (Karthik Dust) or amphetamine mixed in it. These drugs can cause other harmful side effects. Marijuana can cause the following effects: Changes in mood (stimulated, happy, drowsy, depressed, paranoid) Hallucinations Increased heart rate and blood pressure Increased appetite Time distortion, difficulty concentrating, impaired memory Lung damage (similar to cigarettes with chronic cough, wheezing, frequent colds and bronchitis) You can become psychologically dependent on marijuana. That means the craving to use the drug is emotional or psychological rather than due to physical withdrawal. Is Marijuana Running Your Life? Here are some of the signs: Relying on marijuana to feel good, forget problems, deal with stress or to relax Wanting to be alone most of the time or only with others who use drugs Losing interest in things that used to be important Changes in school or job performance or attendance Spending a lot of time thinking about how to get marijuana Stealing or selling your things so you can buy marijuana Unable to stop using even though you may want to quit Increasing anxiety, anger,or depression Sleeping too much, changes in eating habits (weight loss or gain) Needing to use more to get the same effect Home Care Once you have become addicted to any drug, quitting is hard to do. Most people find they can't quit without help. So, dont try to do this alone. Talk to someone you trust who can support you. Seek professional help. Avoid people and places where drugs are used. That only increases the temptation to use. Follow Up with your doctor or as advised by our staff. For more information or a referral to a treatment center in your area, contact: Your local mental health center or the National Alcohol and Substance Abuse Information Center (396)-714-2056 www.addictioncareVarthana.[employer] [place] on Alcoholism and Drug Dependence 805-793-KFXT www.ncadd.org Marijuana Anonymous 810-697-3363 www.marijuana-anonymous.org Get Prompt Medical Attention if any of the following occur: You feel extreme depression, fear, anxiety, or anger toward yourself or others You feel out of control You feel that you may try to harm yourself or another Penicillin V Potassium Oral tablet What is this medicine? PENICILLIN V (pen i SILL in V) is a penicillin antibiotic. It is used to treat certain kinds of bacterial infections. It will not work for colds, flu, or other viral infections. How should I use this medicine? Take this medicine by mouth with a full glass of water. Follow the directions on the prescription label. Take your medicine at regular intervals. Do not take your medicine more often than directed. Take all of your medicine as directed even if you think your are better. Do not skip doses or stop your medicine early. Talk to your radio operator ground regarding the use of this medicine in children. While this drug may be prescribed for selected conditions, precautions do apply. What side effects may I notice from receiving this medicine? Side effects that you should report to your doctor or health residential care officer as soon as possible: allergic reactions like skin rash or hives, swelling of the face, lips, or tongue breathing problems fever new symptoms of infection redness, blistering, peeling or loosening of the skin, including inside the mouth unusually weak or tired Side effects that usually do not require medical attention (report to your doctor or health residential care officer if they continue or are bothersome): diarrhea headache nausea, vomiting sore mouth or tongue stomach upset What may interact with this medicine? control pills methotrexate other antibiotics probenecid some vaccines What if I miss a dose? If you miss a dose, take it as soon as you can. If it is almost time for your next dose, take only that dose. Do not take double or extra doses. Where should I keep my medicine? Keep out of the reach of children. Store at room temperature between 15 and 30 degrees C (59 and 86 degrees F). Keep container tightly closed. Throw away any unused medicine after the expiration date. What should I tell my health care provider before I take this medicine? They need to know if you have any of these conditions: asthma bowel disease, like colitis eczema kidney disease an unusual or allergic reaction to penicillin, cephalosporins, other antibiotics or medicines, foods, tartrazine or other dyes, or preservatives or trying to get breast-feeding What should I watch for while using this medicine? Tell your doctor or health residential care officer if your symptoms do not improve. Do not treat diarrhea with over the counter products. Contact your doctor if you have diarrhea that lasts more than 2 days or if it is severe and watery. If you have diabetes, you may get a false-positive result for sugar in your urine. Check with your doctor or health residential care officer. control pills may not work properly while you are taking this medicine. Talk to your doctor about using an extra method of control. Ibuprofen Oral tablet What is this medicine? IBUPROFEN (eye BYOO proe fen) is a non-steroidal anti-inflammatory drug (NSAID). It is used for dental pain, fever, headaches or migraines, osteoarthritis, rheumatoid arthritis, or painful monthly periods. It can also relieve minor aches and pains caused by a cold, flu, or sore throat. How should I use this medicine? Take this medicine by mouth with a glass of water. Follow the directions on the prescription label. Take this medicine with food if your stomach gets upset. Try to not lie down for at least 10 minutes after you take the medicine. Take your medicine at regular intervals. Do not take your medicine more often than directed. A special MedGuide will be given to you by the pharmacist with each prescription and refill. Be sure to read this information carefully each time. Talk to your radio operator ground regarding the use of this medicine in children. Special care may be needed. What side effects may I notice from receiving this medicine? Side effects that you should report to your doctor or health residential care officer as soon as possible: allergic reactions like skin rash, itching or hives, swelling of the face, lips, or tongue black or bloody stools, blood in the urine or in vomit breathing problems changes in vision chest pain general ill feeling or flu-like symptoms nausea or vomiting redness, blistering, peeling or loosening of the skin, including inside the mouth slurred speech or weakness on one side of the body stomach pain unexplained weight gain or swelling unusually weak or tired yellowing of eyes or skin Side effects that usually do not require medical attention (report to your doctor or health residential care officer if they continue or are bothersome): constipation or diarrhea dizziness gas or heartburn stomach upset What may interact with this medicine? Do not take this medicine with any of the following medications: cidofovir ketorolac methotrexate pemetrexed This medicine may also interact with the following medications: alcohol aspirin diuretics lithium other drugs for inflammation like prednisone warfarin What if I miss a dose? If you miss a dose, take it as soon as you can. If it is almost time for your next dose, take only that dose. Do not take double or extra doses. Where should I keep my medicine? Keep out of the reach of children. Store at room temperature between 15 and 30 degrees C (59 and 86 degrees F). Keep container tightly closed. Throw away any unused medicine after the expiration date. What should I tell my health care provider before I take this medicine? They need to know if you have any of these conditions: asthma cigarette smoker drink more than 3 alcohol containing drinks a day heart disease or circulation problems such as heart failure or leg edema (fluid retention) high blood pressure kidney disease liver disease stomach bleeding or ulcers an unusual or allergic reaction to ibuprofen, aspirin, other NSAIDS, other medicines, foods, dyes, or preservatives or trying to get breast-feeding What should I watch for while using this medicine? Tell your doctor or healthcare professional if your symptoms do not start to get better or if they get worse. This medicine does not prevent heart attack or stroke. In fact, this medicine may increase the chance of a heart attack or stroke. The chance may increase with longer use of this medicine and in people who have heart disease. If you take aspirin to prevent heart attack or stroke, talk with your doctor or health residential care officer. Do not take other medicines that contain aspirin, ibuprofen, or naproxen with this medicine. Side effects such as stomach upset, nausea, or ulcers may be more likely to occur. Many medicines available without a prescription should not be taken with this medicine. This medicine can cause ulcers and bleeding in the stomach and intestines at any time during treatment. Ulcers and bleeding can happen without warning symptoms and can cause . To reduce your risk, do not smoke cigarettes or drink alcohol while you are taking this medicine. You may get drowsy or dizzy. Do not drive, use machinery, or do anything that needs mental alertness until you know how this medicine affects you. Do not stand or sit up quickly, especially if you are an older patient. This reduces the risk of dizzy or fainting spells. This medicine can cause you to bleed more easily. Try to avoid damage to your teeth and gums when you brush or floss your teeth. Tramadol Hydrochloride Oral tablet What is this medicine? TRAMADOL (TRA ma dole) is a pain reliever. It is used to treat moderate to severe pain in adults. How should I use this medicine? Take this medicine by mouth with a full glass of water. Follow the directions on the prescription label. If the medicine upsets your stomach, take it with food or milk. Do not take more medicine than you are told to take. Talk to your radio operator ground regarding the use of this medicine in children. Special care may be needed. What side effects may I notice from receiving this medicine? Side effects that you should report to your doctor or health residential care officer as soon as possible: allergic reactions like skin rash, itching or hives, swelling of the face, lips, or tongue breathing difficulties, wheezing confusion itching light headedness or fainting spells redness, blistering, peeling or loosening of the skin, including inside the mouth seizures Side effects that usually do not require medical attention (report to your doctor or health residential care officer if they continue or are bothersome): constipation dizziness drowsiness headache nausea, vomiting What may interact with this medicine? Do not take this medicine with any of the following medications: MAOIs like Carbex, Eldepryl, Marplan, Nardil, and Parnate This medicine may also interact with the following medications: alcohol or medicines that contain alcohol antihistamines benzodiazepines bupropion carbamazepine or oxcarbazepine clozapine cyclobenzaprine digoxin furazolidone linezolid medicines for depression, anxiety, or psychotic disturbances medicines for migraine headache like almotriptan, eletriptan, frovatriptan, naratriptan, rizatriptan, sumatriptan, zolmitriptan medicines for pain like pentazocine, buprenorphine, butorphanol, meperidine, nalbuphine, and propoxyphene medicines for sleep muscle relaxants naltrexone phenobarbital phenothiazines like perphenazine, thioridazine, chlorpromazine, mesoridazine, fluphenazine, prochlorperazine, promazine, and trifluoperazine procarbazine warfarin What if I miss a dose? If you miss a dose, take it as soon as you can. If it is almost time for your next dose, take only that dose. Do not take double or extra doses. Where should I keep my medicine? Keep out of the reach of children. Store at room temperature between 15 and 30 degrees C (59 and 86 degrees F). Keep container tightly closed. Throw away any unused medicine after the expiration date. What should I tell my health care provider before I take this medicine? They need to know if you have any of these conditions: brain tumor depression drug abuse or addiction head injury if you frequently drink alcohol containing drinks kidney disease or trouble passing urine liver disease lung disease, asthma, or breathing problems seizures or epilepsy suicidal thoughts, plans, or attempt; a previous suicide attempt by you or a family member an unusual or allergic reaction to tramadol, codeine, other medicines, foods, dyes, or preservatives or trying to get breast-feeding What should I watch for while using this medicine? Tell your doctor or health residential care officer if your pain does not go away, if it gets worse, or if you have new or a different type of pain. You may develop tolerance to the medicine. Tolerance means that you will need a higher dose of the medicine for pain relief. Tolerance is normal and is expected if you take this medicine for a long time. Do not suddenly stop taking your medicine because you may develop a severe reaction. Your body becomes used to the medicine. This does NOT mean you are addicted. Addiction is a behavior related to getting and using a drug for a non-medical reason. If you have pain, you have a medical reason to take pain medicine. Your doctor will tell you how much medicine to take. If your doctor wants you to stop the medicine, the dose will be slowly lowered over time to avoid any side effects. You may get drowsy or dizzy. Do not drive, use machinery, or do anything that needs mental alertness until you know how this medicine affects you. Do not stand or sit up quickly, especially if you are an older patient. This reduces the risk of dizzy or fainting spells. Alcohol can increase or decrease the effects of this medicine. Avoid alcoholic drinks. You may have constipation. Try to have a bowel movement at least every 2 to 3 days. If you do not have a bowel movement for 3 days, call your doctor or health residential care officer. Your mouth may get dry. Chewing sugarless gum or sucking hard candy, and drinking plenty of water may help. Contact your doctor if the problem does not go away or is severe. Acetaminophen Oral tablet What is this medicine? ACETAMINOPHEN (a set a TETE moraima fen) is a pain reliever. It is used to treat mild pain and fever. How should I use this medicine? Take this medicine by mouth with a glass of water. Follow the directions on the package or prescription label. Take your medicine at regular intervals. Do not take your medicine more often than directed. Talk to your radio operator ground regarding the use of this medicine in children. While this drug may be prescribed for children as young as 6 years of age for selected conditions, precautions do apply. What side effects may I notice from receiving this medicine? Side effects that you should report to your doctor or health residential care officer as soon as possible: allergic reactions like skin rash, itching or hives, swelling of the face, lips, or tongue breathing problems fever or sore throat redness, blistering, peeling or loosening of the skin, including inside the mouth trouble passing urine or change in the amount of urine unusual bleeding or bruising unusually weak or tired yellowing of the eyes or skin Side effects that usually do not require medical attention (report to your doctor or health residential care officer if they continue or are bothersome): headache nausea, stomach upset What may interact with this medicine? alcohol imatinib isoniazid other medicines with acetaminophen What if I miss a dose? If you miss a dose, take it as soon as you can. If it is almost time for your next dose, take only that dose. Do not take double or extra doses. Where should I keep my medicine? Keep out of reach of children. Store at room temperature between 20 and 25 degrees C (68 and 77 degrees F). Protect from moisture and heat. Throw away any unused medicine after the expiration date. What should I tell my health care provider before I take this medicine? They need to know if you have any of these conditions: if you frequently drink alcohol containing drinks liver disease an unusual or allergic reaction to acetaminophen, other medicines, foods, dyes or preservatives or trying to get breast-feeding What should I watch for while using this medicine? Tell your doctor or health residential care officer if the pain lasts more than 10 days (5 days for children), if it gets worse, or if there is a new or different kind of pain. Also, check with your doctor if a fever lasts for more than 3 days. Do not take other medicines that contain acetaminophen with this medicine. Always read labels carefully. If you have questions, ask your doctor or pharmacist. If you take too much acetaminophen get medical help right away. Too much acetaminophen can be very dangerous and cause liver damage. Even if you do not have symptoms, it is important to get help right away. You have been given the following additional information: Dental Pain Dental Cavity Marijuana Abuse Penicillin V Potassium Oral tablet Ibuprofen Oral tablet Tramadol Hydrochloride Oral tablet Acetaminophen Oral tablet Do not work for two days. (Electronically signed by Ian Virk DO 05/19/2016 22:27)
== END 2016-05-19 18:00 | disposition home or self-care (01) ==
LOC: ED SRH 17:35
DX: K08.89 Other specified disorders of teeth and supporting structures (principal); F17.210 Nicotine dependence, cigarettes, uncomplicated; F12.10 Cannabis abuse, uncomplicated

== ENCOUNTER 2016-06-16 13:55 | Emergency (ER) | payer OTHER ==
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
--- NOTE | 2016-06-17 21:43 | ED DISCHARGE INSTRUCTIONS ---
Patient: PRASAD SHERWOOD General Instructions [facility] VisitID: [id number] [address] [place] [address] 26y, M Registration Date/Time: 06/16/2016 Dental caries (localized) Periapical dental abscess. No sinus tract. INSTRUCTIONS Warnings: Further evaluation is necessary. Prescription Medications: Hydrocodone/APAP 5mg / 325mg: take 1-2 orally every 6 hours as needed for pain. Dispense ten (10). No refill. Penicillin V 500mg: take 1 tab orally every 6 hours for 10 days. Dispense forty (40). No refill OTC Medications: Motrin (available over the counter): take according to label instructions. Follow-up: Follow up with a dentist. Call for the next available appointment. Understanding of the discharge instructions verbalized by patient. Follow-up with: [facility], , , [address], , [place], [id number] Follow up. Call for the next available appointment. ADDITIONAL INFORMATION Dental Cavity A dental cavity is a pit or crater in the enamel surface of the tooth. This exposes the sensitive inner layer of the tooth and causes pain. If untreated, the cavity will get bigger and may cause an infection or abscess in the root of the tooth. An infection in the tooth is a much more serious problem and may require a root canal or removal of the entire tooth. The tooth pain may be made worse by drinking hot or cold fluids. It may spread from the tooth to the ear or jaw on the same side. Home Care: Avoid hot and cold foods, and liquids since your tooth may be sensitive to temperature changes. If your tooth is chipped or cracked, or if there is a large open cavity, apply OIL OF CLOVES (available cjjm-jxm-kvcqion in drug stores) directly to the tooth to reduce pain. Some pharmacies carry an ybyd-lsi-bxvfbhq "toothache kit." This contains oil of cloves and a paste, which can be applied over the exposed tooth to decrease sensitivity. An ice pack on your jaw over the sore area may help to reduce pain. You may use acetaminophen (Tylenol) or ibuprofen (Motrin, Advil) to control pain, unless another pain medicine was prescribed. [ NOTE: If you have liver disease or ever had a stomach ulcer, talk with your doctor before using these medicines.] If you have signs of an infection, an antibiotic will be given. Take it as directed. Follow-Up with your dentist as directed. Although your pain may go away with the treatment given, only a dentist can fully evaluate and treat this problem to prevent further tooth damage. Get Prompt Medical Attention if any of the following occur: Redness or swelling of the face Pain worsens or spreads to the neck Fever over 100.5 F (38C) Unusual drowsiness; headache or stiff neck; weakness or fainting Pus drains from the tooth or gum Difficulty swallowing or breathing Dental Abscess A dental abscess is an infection of the tooth socket. It often starts with a crack or cavity in the tooth. A pocket of pus forms between the tooth and the bone. The infection causes pain and swelling of the gum, cheek or jaw. The pain is often made worse by drinking hot or cold fluids, or biting on hard foods. Pain may be felt in the facial sinus or in the ear. A severe infection can interfere with swallowing and breathing. In the emergency department or clinic, you will be started on an antibiotic. However, final treatment requires drainage of the pus. This can be done by removing the tooth or performing a root canal. A root canal is done by an oral surgeon and involves drilling an opening in the tooth to drain the pus. After the infection has healed, a crown is placed over the tooth. Home care The following guidelines will help you care for your abscess at home: Avoid hot and cold foods and liquids since your tooth may be sensitive to temperature changes. If your tooth is chipped or cracked, or if there is a large open cavity, applyoil of cloves(available tcrs-trw-tyzhafv in drug stores) directly to the tooth to reduce pain. Some pharmacies carry an ckwh-uxl-yecebwa "toothache kit". This contains oil of cloves and a paste, which can be applied over the exposed tooth to decrease sensitivity. Apply an ice pack (ice cubes in a plastic bag, wrapped in a towel) over the injured area for 20 minutes every 12 hours the first day for pain relief. Continue this 34 times a day until the pain and swelling goes away. You may use acetaminophen or ibuprofen to control pain, unless another medicine was prescribed. If you have chronic liver or kidney disease or ever had a stomach ulcer or GI bleeding, talk with your doctor before using these medicines. An antibiotic will be prescribed. Take it as directed until completed, even if you are feeling better sooner. Follow-up care Follow up as directed with a dentist or oral surgeon. Even though your pain may improve with the treatment given today, only a dentist or oral surgeon can provide full treatment for this problem. When to seek medical care Get prompt medical attention or contact your doctor if any of the following occur: Your face or eyelid becomes swollen or red Pain worsens or spreads to the neck Fever over 100.4F (38.0C) Unusual drowsiness; headache or stiff neck; weakness, or fainting Pus drains from the gum or tooth Difficulty talking, swallowing or breathing Unable to open your mouth wide Dental Pain A crack or cavity in the tooth, which exposes the sensitive inner area of the tooth can cause tooth pain. An infection in the gum or the root of the tooth can cause pain and swelling. The pain is often made worse by drinking hot or cold fluids, or biting on hard foods. Pain may spread from the tooth to the ear or jaw on the same side. Home Care: Avoid hot and cold foods and liquids since your tooth may be sensitive to temperature changes. If your tooth is chipped or cracked, or if there is a large open cavity, apply OIL OF CLOVES (available fupn-dyp-uvdypze in drug stores) directly to the tooth to reduce pain. Some pharmacies carry an wdkb-pzg-lrqukpv "toothache kit." This contains a paste, which can be applied over the exposed tooth to decrease sensitivity. A cold pack on your jaw over the sore area may help reduce pain. You may use acetaminophen (Tylenol) or ibuprofen (Motrin, Advil) to control pain, unless another medicine was prescribed. [ NOTE: If you have chronic liver or kidney disease or ever had a stomach ulcer or GI bleeding, talk with your doctor before using these medicines.] If you have signs of an infection, an antibiotic will be given. Take it as directed. Follow-Up as directed with a dentist. Your pain may go away with the treatment given. However, only a dentist can fully evaluate and treat the cause and prevent the pain from coming back again. TOOTHACHE IS A SIGN OF DISEASE IN YOUR TOOTH AND SHOULD BE EXAMINED AND TREATED BY A DENTIST. Get Prompt Medical Attention if any of the following occur: Your face becomes swollen or red Pain worsens or spreads to the neck Fever over 100.4 F (38.0 C) Unusual drowsiness; headache or stiff neck; weakness or fainting Pus drains from the tooth Difficulty swallowing or breathing Dental Abscess A dental abscess is an infection of the tooth socket. It often starts with a crack or cavity in the tooth. A pocket of pus forms between the tooth and the bone. The infection causes pain and swelling of the gum, cheek or jaw. The pain is often made worse by drinking hot or cold fluids, or biting on hard foods. Pain may be felt in the facial sinus or in the ear. A severe infection can interfere with swallowing and breathing. In the emergency department or clinic, you will be started on an antibiotic. However, final treatment requires drainage of the pus. This can be done by removing the tooth or performing a root canal. A root canal is done by an oral surgeon and involves drilling an opening in the tooth to drain the pus. After the infection has healed, a crown is placed over the tooth. Home care The following guidelines will help you care for your abscess at home: Avoid hot and cold foods and liquids since your tooth may be sensitive to temperature changes. If your tooth is chipped or cracked, or if there is a large open cavity, applyoil of cloves(available jnsb-eca-ifvcvib in drug stores) directly to the tooth to reduce pain. Some pharmacies carry an lwir-ytm-jusbegt "toothache kit". This contains oil of cloves and a paste, which can be applied over the exposed tooth to decrease sensitivity. Apply an ice pack (ice cubes in a plastic bag, wrapped in a towel) over the injured area for 20 minutes every 12 hours the first day for pain relief. Continue this 34 times a day until the pain and swelling goes away. You may use acetaminophen or ibuprofen to control pain, unless another medicine was prescribed. If you have chronic liver or kidney disease or ever had a stomach ulcer or GI bleeding, talk with your doctor before using these medicines. An antibiotic will be prescribed. Take it as directed until completed, even if you are feeling better sooner. Follow-up care Follow up as directed with a dentist or oral surgeon. Even though your pain may improve with the treatment given today, only a dentist or oral surgeon can provide full treatment for this problem. When to seek medical care Get prompt medical attention or contact your doctor if any of the following occur: Your face or eyelid becomes swollen or red Pain worsens or spreads to the neck Fever over 100.4F (38.0C) Unusual drowsiness; headache or stiff neck; weakness, or fainting Pus drains from the gum or tooth Difficulty talking, swallowing or breathing Unable to open your mouth wide Dental Pain A crack or cavity in the tooth, which exposes the sensitive inner area of the tooth can cause tooth pain. An infection in the gum or the root of the tooth can cause pain and swelling. The pain is often made worse by drinking hot or cold fluids, or biting on hard foods. Pain may spread from the tooth to the ear or jaw on the same side. Home Care: Avoid hot and cold foods and liquids since your tooth may be sensitive to temperature changes. If your tooth is chipped or cracked, or if there is a large open cavity, apply OIL OF CLOVES (available srgw-sxx-fqmwfhc in drug stores) directly to the tooth to reduce pain. Some pharmacies carry an dhfd-noz-kptqfak "toothache kit." This contains a paste, which can be applied over the exposed tooth to decrease sensitivity. A cold pack on your jaw over the sore area may help reduce pain. You may use acetaminophen (Tylenol) or ibuprofen (Motrin, Advil) to control pain, unless another medicine was prescribed. [ NOTE: If you have chronic liver or kidney disease or ever had a stomach ulcer or GI bleeding, talk with your doctor before using these medicines.] If you have signs of an infection, an antibiotic will be given. Take it as directed. Follow-Up as directed with a dentist. Your pain may go away with the treatment given. However, only a dentist can fully evaluate and treat the cause and prevent the pain from coming back again. TOOTHACHE IS A SIGN OF DISEASE IN YOUR TOOTH AND SHOULD BE EXAMINED AND TREATED BY A DENTIST. Get Prompt Medical Attention if any of the following occur: Your face becomes swollen or red Pain worsens or spreads to the neck Fever over 100.4 F (38.0 C) Unusual drowsiness; headache or stiff neck; weakness or fainting Pus drains from the tooth Difficulty swallowing or breathing Hydrocodone Bitartrate, Acetaminophen Oral tablet What is this medicine? ACETAMINOPHEN; HYDROCODONE (a set a TETE moraima fen; francisco j jigneshsheridan ZENON done) is a pain reliever. It is used to treat mild to moderate pain. How should I use this medicine? Take this medicine by mouth. Swallow it with a full glass of water. Follow the directions on the prescription label. If the medicine upsets your stomach, take the medicine with food or milk. Do not take more than you are told to take. Talk to your manager human resources regarding the use of this medicine in children. This medicine is not approved for use in children. What side effects may I notice from receiving this medicine? Side effects that you should report to your doctor or health aged or disabled carer as soon as possible: allergic reactions like skin rash, itching or hives, swelling of the face, lips, or tongue breathing problems confusion feeling faint or lightheaded, falls stomach pain yellowing of the eyes or skin Side effects that usually do not require medical attention (report to your doctor or health aged or disabled carer if they continue or are bothersome): nausea, vomiting stomach upset What may interact with this medicine? alcohol antihistamines isoniazid medicines for depression, anxiety, or psychotic disturbances medicines for sleep muscle relaxants naltrexone narcotic medicines (opiates) for pain phenobarbital ritonavir tramadol What if I miss a dose? If you miss a dose, take it as soon as you can. If it is almost time for your next dose, take only that dose. Do not take double or extra doses. Where should I keep my medicine? Keep out of the reach of children. This medicine can be abused. Keep your medicine in a safe place to protect it from theft. Do not share this medicine with anyone. Selling or giving away this medicine is dangerous and against the law. Store at room temperature between 15 and 30 degrees C (59 and 86 degrees F). Protect from light. Keep container tightly closed. Throw away any unused medicine after the expiration date. Discard unused medicine and used packaging carefully. Pets and children can be harmed if they find used or lost packages. What should I tell my health care provider before I take this medicine? They need to know if you have any of these conditions: brain tumor Crohn's disease, inflammatory bowel disease, or ulcerative colitis drink more than 3 alcohol-containing drinks per day drug abuse or addiction head injury heart or circulation problems kidney disease or problems going to the bathroom liver disease lung disease, asthma, or breathing problems an unusual or allergic reaction to acetaminophen, hydrocodone, other opioid analgesics, other medicines, foods, dyes, or preservatives or trying to get breast-feeding What should I watch for while using this medicine? Tell your doctor or health aged or disabled carer if your pain does not go away, if it gets worse, or if you have new or a different type of pain. You may develop tolerance to the medicine. Tolerance means that you will need a higher dose of the medicine for pain relief. Tolerance is normal and is expected if you take the medicine for a long time. Do not suddenly stop taking your medicine because you may develop a severe reaction. Your body becomes used to the medicine. This does NOT mean you are addicted. Addiction is a behavior related to getting and using a drug for a non-medical reason. If you have pain, you have a medical reason to take pain medicine. Your doctor will tell you how much medicine to take. If your doctor wants you to stop the medicine, the dose will be slowly lowered over time to avoid any side effects. You may get drowsy or dizzy when you first start taking the medicine or change doses. Do not drive, use machinery, or do anything that may be dangerous until you know how the medicine affects you. Stand or sit up slowly. There are different types of narcotic medicines (opiates) for pain. If you take more than one type at the same time, you may have more side effects. Give your health care provider a list of all medicines you use. Your doctor will tell you how much medicine to take. Do not take more medicine than directed. Call emergency for help if you have problems breathing. The medicine will cause constipation. Try to have a bowel movement at least every 2 to 3 days. If you do not have a bowel movement for 3 days, call your doctor or health aged or disabled carer. Too much acetaminophen can be very dangerous. Do not take Tylenol (acetaminophen) or medicines that contain acetaminophen with this medicine. Many non-prescription medicines contain acetaminophen. Always read the labels carefully. You have been given the following additional information: Dental Cavity Tooth Abscess Dental Pain Tooth Abscess Dental Pain Hydrocodone Bitartrate, Acetaminophen Oral tablet (Electronically signed by Isaías Olvera MD 06/17/2016 21:43)
--- NOTE | 2016-06-17 21:43 | ED MED RECONCILIATION SUMMARY ---
Patient: PRASAD SHERWOOD Medication Reconciliation Report [facility] VisitID: [id number] [address] [place] [address] 26y, M Registration Date/Time: 06/16/2016 Weight: 117.9 kg Height/Length: 77 in. BMI: 30.8 ALLERGIES: No Known Drug Allergy The patient's Home Medications are listed below: THE FOLLOWING MEDICATIONS NEED TO BE RECONCILED: Ibuprofen Oral 800 mg The source(s) of the original Home Medication information: patient The following Medications were given to the patient in the Emergency Department: None. The following Medications were prescribed to the patient: Motrin (available over the counter): take according to label instructions. -- Isaías Olvera MD Hydrocodone/APAP 5mg / 325mg: take 1-2 orally every 6 hours as needed for pain. Dispense ten (10). No refill. -- Isaías Olvera MD Penicillin V 500mg: take 1 tab orally every 6 hours for 10 days. Dispense forty (40). No refill -- Isaías Olvera MD
--- NOTE | 2016-06-17 21:43 | ED MAR SUMMARY ---
..... Medication Administration Record [facility] [address], [place] [id number] Patient: PRASAD SHERWOOD Visit ID: [id number] 26y, M Weight: 117.9 kg Height/Length: 77 in BMI: 30.8 ALLERGIES: No Known Drug Allergy
--- NOTE | 2016-06-17 21:43 | ED MED RECONCILIATION SUMMARY ---
Patient: PRASAD SHERWOOD Medication Reconciliation Report [facility] VisitID: [id number] [address] [place] [address] 26y, M Registration Date/Time: 06/16/2016 Weight: 117.9 kg Height/Length: 77 in. BMI: 30.8 ALLERGIES: No Known Drug Allergy The patient's Home Medications are listed below: THE FOLLOWING MEDICATIONS NEED TO BE RECONCILED: Ibuprofen Oral 800 mg The source(s) of the original Home Medication information: patient The following Medications were given to the patient in the Emergency Department: None. The following Medications were prescribed to the patient: Motrin (available over the counter): take according to label instructions. -- Isaías Olvera MD Hydrocodone/APAP 5mg / 325mg: take 1-2 orally every 6 hours as needed for pain. Dispense ten (10). No refill. -- Isaías Olvera MD Penicillin V 500mg: take 1 tab orally every 6 hours for 10 days. Dispense forty (40). No refill -- Isaías Olvera MD
--- NOTE | 2016-06-17 21:43 | ED DISCHARGE INSTRUCTIONS ---
Patient: PRASAD SHERWOOD General Instructions [facility] VisitID: [id number] [address] [place] [place] [address] 26y, M Registration Date/Time: 06/16/2016 Dental caries (localized) Periapical dental abscess. No sinus tract. INSTRUCTIONS Warnings: Further evaluation is necessary. Prescription Medications: Hydrocodone/APAP 5mg / 325mg: take 1-2 orally every 6 hours as needed for pain. Dispense ten (10). No refill. Penicillin V 500mg: take 1 tab orally every 6 hours for 10 days. Dispense forty (40). No refill OTC Medications: Motrin (available over the counter): take according to label instructions. Follow-up: Follow up with a dentist. Call for the next available appointment. Understanding of the discharge instructions verbalized by patient. Follow-up with: [facility], , , [address], , [place], [id number] Follow up. Call for the next available appointment. ADDITIONAL INFORMATION Dental Cavity A dental cavity is a pit or crater in the enamel surface of the tooth. This exposes the sensitive inner layer of the tooth and causes pain. If untreated, the cavity will get bigger and may cause an infection or abscess in the root of the tooth. An infection in the tooth is a much more serious problem and may require a root canal or removal of the entire tooth. The tooth pain may be made worse by drinking hot or cold fluids. It may spread from the tooth to the ear or jaw on the same side. Home Care: Avoid hot and cold foods, and liquids since your tooth may be sensitive to temperature changes. If your tooth is chipped or cracked, or if there is a large open cavity, apply OIL OF CLOVES (available wope-rgo-xmzlsam in drug stores) directly to the tooth to reduce pain. Some pharmacies carry an yykn-dqk-ytjmonn "toothache kit." This contains oil of cloves and a paste, which can be applied over the exposed tooth to decrease sensitivity. An ice pack on your jaw over the sore area may help to reduce pain. You may use acetaminophen (Tylenol) or ibuprofen (Motrin, Advil) to control pain, unless another pain medicine was prescribed. [ NOTE: If you have liver disease or ever had a stomach ulcer, talk with your doctor before using these medicines.] If you have signs of an infection, an antibiotic will be given. Take it as directed. Follow-Up with your dentist as directed. Although your pain may go away with the treatment given, only a dentist can fully evaluate and treat this problem to prevent further tooth damage. Get Prompt Medical Attention if any of the following occur: Redness or swelling of the face Pain worsens or spreads to the neck Fever over 100.5 F (38C) Unusual drowsiness; headache or stiff neck; weakness or fainting Pus drains from the tooth or gum Difficulty swallowing or breathing Dental Abscess A dental abscess is an infection of the tooth socket. It often starts with a crack or cavity in the tooth. A pocket of pus forms between the tooth and the bone. The infection causes pain and swelling of the gum, cheek or jaw. The pain is often made worse by drinking hot or cold fluids, or biting on hard foods. Pain may be felt in the facial sinus or in the ear. A severe infection can interfere with swallowing and breathing. In the emergency department or clinic, you will be started on an antibiotic. However, final treatment requires drainage of the pus. This can be done by removing the tooth or performing a root canal. A root canal is done by an oral surgeon and involves drilling an opening in the tooth to drain the pus. After the infection has healed, a crown is placed over the tooth. Home care The following guidelines will help you care for your abscess at home: Avoid hot and cold foods and liquids since your tooth may be sensitive to temperature changes. If your tooth is chipped or cracked, or if there is a large open cavity, applyoil of cloves(available meyk-vaw-cinflit in drug stores) directly to the tooth to reduce pain. Some pharmacies carry an oluo-mfz-qztzxyp "toothache kit". This contains oil of cloves and a paste, which can be applied over the exposed tooth to decrease sensitivity. Apply an ice pack (ice cubes in a plastic bag, wrapped in a towel) over the injured area for 20 minutes every 12 hours the first day for pain relief. Continue this 34 times a day until the pain and swelling goes away. You may use acetaminophen or ibuprofen to control pain, unless another medicine was prescribed. If you have chronic liver or kidney disease or ever had a stomach ulcer or GI bleeding, talk with your doctor before using these medicines. An antibiotic will be prescribed. Take it as directed until completed, even if you are feeling better sooner. Follow-up care Follow up as directed with a dentist or oral surgeon. Even though your pain may improve with the treatment given today, only a dentist or oral surgeon can provide full treatment for this problem. When to seek medical care Get prompt medical attention or contact your doctor if any of the following occur: Your face or eyelid becomes swollen or red Pain worsens or spreads to the neck Fever over 100.4F (38.0C) Unusual drowsiness; headache or stiff neck; weakness, or fainting Pus drains from the gum or tooth Difficulty talking, swallowing or breathing Unable to open your mouth wide Dental Pain A crack or cavity in the tooth, which exposes the sensitive inner area of the tooth can cause tooth pain. An infection in the gum or the root of the tooth can cause pain and swelling. The pain is often made worse by drinking hot or cold fluids, or biting on hard foods. Pain may spread from the tooth to the ear or jaw on the same side. Home Care: Avoid hot and cold foods and liquids since your tooth may be sensitive to temperature changes. If your tooth is chipped or cracked, or if there is a large open cavity, apply OIL OF CLOVES (available lxld-bxk-phckuxi in drug stores) directly to the tooth to reduce pain. Some pharmacies carry an qflg-hxn-nbcxllx "toothache kit." This contains a paste, which can be applied over the exposed tooth to decrease sensitivity. A cold pack on your jaw over the sore area may help reduce pain. You may use acetaminophen (Tylenol) or ibuprofen (Motrin, Advil) to control pain, unless another medicine was prescribed. [ NOTE: If you have chronic liver or kidney disease or ever had a stomach ulcer or GI bleeding, talk with your doctor before using these medicines.] If you have signs of an infection, an antibiotic will be given. Take it as directed. Follow-Up as directed with a dentist. Your pain may go away with the treatment given. However, only a dentist can fully evaluate and treat the cause and prevent the pain from coming back again. TOOTHACHE IS A SIGN OF DISEASE IN YOUR TOOTH AND SHOULD BE EXAMINED AND TREATED BY A DENTIST. Get Prompt Medical Attention if any of the following occur: Your face becomes swollen or red Pain worsens or spreads to the neck Fever over 100.4 F (38.0 C) Unusual drowsiness; headache or stiff neck; weakness or fainting Pus drains from the tooth Difficulty swallowing or breathing Dental Abscess A dental abscess is an infection of the tooth socket. It often starts with a crack or cavity in the tooth. A pocket of pus forms between the tooth and the bone. The infection causes pain and swelling of the gum, cheek or jaw. The pain is often made worse by drinking hot or cold fluids, or biting on hard foods. Pain may be felt in the facial sinus or in the ear. A severe infection can interfere with swallowing and breathing. In the emergency department or clinic, you will be started on an antibiotic. However, final treatment requires drainage of the pus. This can be done by removing the tooth or performing a root canal. A root canal is done by an oral surgeon and involves drilling an opening in the tooth to drain the pus. After the infection has healed, a crown is placed over the tooth. Home care The following guidelines will help you care for your abscess at home: Avoid hot and cold foods and liquids since your tooth may be sensitive to temperature changes. If your tooth is chipped or cracked, or if there is a large open cavity, applyoil of cloves(available kzhy-srm-nalzutw in drug stores) directly to the tooth to reduce pain. Some pharmacies carry an unpe-bzx-vzdhipv "toothache kit". This contains oil of cloves and a paste, which can be applied over the exposed tooth to decrease sensitivity. Apply an ice pack (ice cubes in a plastic bag, wrapped in a towel) over the injured area for 20 minutes every 12 hours the first day for pain relief. Continue this 34 times a day until the pain and swelling goes away. You may use acetaminophen or ibuprofen to control pain, unless another medicine was prescribed. If you have chronic liver or kidney disease or ever had a stomach ulcer or GI bleeding, talk with your doctor before using these medicines. An antibiotic will be prescribed. Take it as directed until completed, even if you are feeling better sooner. Follow-up care Follow up as directed with a dentist or oral surgeon. Even though your pain may improve with the treatment given today, only a dentist or oral surgeon can provide full treatment for this problem. When to seek medical care Get prompt medical attention or contact your doctor if any of the following occur: Your face or eyelid becomes swollen or red Pain worsens or spreads to the neck Fever over 100.4F (38.0C) Unusual drowsiness; headache or stiff neck; weakness, or fainting Pus drains from the gum or tooth Difficulty talking, swallowing or breathing Unable to open your mouth wide Dental Pain A crack or cavity in the tooth, which exposes the sensitive inner area of the tooth can cause tooth pain. An infection in the gum or the root of the tooth can cause pain and swelling. The pain is often made worse by drinking hot or cold fluids, or biting on hard foods. Pain may spread from the tooth to the ear or jaw on the same side. Home Care: Avoid hot and cold foods and liquids since your tooth may be sensitive to temperature changes. If your tooth is chipped or cracked, or if there is a large open cavity, apply OIL OF CLOVES (available wudp-evi-nljckas in drug stores) directly to the tooth to reduce pain. Some pharmacies carry an erdk-elb-urwycqe "toothache kit." This contains a paste, which can be applied over the exposed tooth to decrease sensitivity. A cold pack on your jaw over the sore area may help reduce pain. You may use acetaminophen (Tylenol) or ibuprofen (Motrin, Advil) to control pain, unless another medicine was prescribed. [ NOTE: If you have chronic liver or kidney disease or ever had a stomach ulcer or GI bleeding, talk with your doctor before using these medicines.] If you have signs of an infection, an antibiotic will be given. Take it as directed. Follow-Up as directed with a dentist. Your pain may go away with the treatment given. However, only a dentist can fully evaluate and treat the cause and prevent the pain from coming back again. TOOTHACHE IS A SIGN OF DISEASE IN YOUR TOOTH AND SHOULD BE EXAMINED AND TREATED BY A DENTIST. Get Prompt Medical Attention if any of the following occur: Your face becomes swollen or red Pain worsens or spreads to the neck Fever over 100.4 F (38.0 C) Unusual drowsiness; headache or stiff neck; weakness or fainting Pus drains from the tooth Difficulty swallowing or breathing Hydrocodone Bitartrate, Acetaminophen Oral tablet What is this medicine? ACETAMINOPHEN; HYDROCODONE (a set a TETE moraima fen; francisco j jigneshsheridan ZENON done) is a pain reliever. It is used to treat mild to moderate pain. How should I use this medicine? Take this medicine by mouth. Swallow it with a full glass of water. Follow the directions on the prescription label. If the medicine upsets your stomach, take the medicine with food or milk. Do not take more than you are told to take. Talk to your rug inspector regarding the use of this medicine in children. This medicine is not approved for use in children. What side effects may I notice from receiving this medicine? Side effects that you should report to your doctor or health career developer as soon as possible: allergic reactions like skin rash, itching or hives, swelling of the face, lips, or tongue breathing problems confusion feeling faint or lightheaded, falls stomach pain yellowing of the eyes or skin Side effects that usually do not require medical attention (report to your doctor or health career developer if they continue or are bothersome): nausea, vomiting stomach upset What may interact with this medicine? alcohol antihistamines isoniazid medicines for depression, anxiety, or psychotic disturbances medicines for sleep muscle relaxants naltrexone narcotic medicines (opiates) for pain phenobarbital ritonavir tramadol What if I miss a dose? If you miss a dose, take it as soon as you can. If it is almost time for your next dose, take only that dose. Do not take double or extra doses. Where should I keep my medicine? Keep out of the reach of children. This medicine can be abused. Keep your medicine in a safe place to protect it from theft. Do not share this medicine with anyone. Selling or giving away this medicine is dangerous and against the law. Store at room temperature between 15 and 30 degrees C (59 and 86 degrees F). Protect from light. Keep container tightly closed. Throw away any unused medicine after the expiration date. Discard unused medicine and used packaging carefully. Pets and children can be harmed if they find used or lost packages. What should I tell my health care provider before I take this medicine? They need to know if you have any of these conditions: brain tumor Crohn's disease, inflammatory bowel disease, or ulcerative colitis drink more than 3 alcohol-containing drinks per day drug abuse or addiction head injury heart or circulation problems kidney disease or problems going to the bathroom liver disease lung disease, asthma, or breathing problems an unusual or allergic reaction to acetaminophen, hydrocodone, other opioid analgesics, other medicines, foods, dyes, or preservatives or trying to get breast-feeding What should I watch for while using this medicine? Tell your doctor or health career developer if your pain does not go away, if it gets worse, or if you have new or a different type of pain. You may develop tolerance to the medicine. Tolerance means that you will need a higher dose of the medicine for pain relief. Tolerance is normal and is expected if you take the medicine for a long time. Do not suddenly stop taking your medicine because you may develop a severe reaction. Your body becomes used to the medicine. This does NOT mean you are addicted. Addiction is a behavior related to getting and using a drug for a non-medical reason. If you have pain, you have a medical reason to take pain medicine. Your doctor will tell you how much medicine to take. If your doctor wants you to stop the medicine, the dose will be slowly lowered over time to avoid any side effects. You may get drowsy or dizzy when you first start taking the medicine or change doses. Do not drive, use machinery, or do anything that may be dangerous until you know how the medicine affects you. Stand or sit up slowly. There are different types of narcotic medicines (opiates) for pain. If you take more than one type at the same time, you may have more side effects. Give your health care provider a list of all medicines you use. Your doctor will tell you how much medicine to take. Do not take more medicine than directed. Call emergency for help if you have problems breathing. The medicine will cause constipation. Try to have a bowel movement at least every 2 to 3 days. If you do not have a bowel movement for 3 days, call your doctor or health career developer. Too much acetaminophen can be very dangerous. Do not take Tylenol (acetaminophen) or medicines that contain acetaminophen with this medicine. Many non-prescription medicines contain acetaminophen. Always read the labels carefully. You have been given the following additional information: Dental Cavity Tooth Abscess Dental Pain Tooth Abscess Dental Pain Hydrocodone Bitartrate, Acetaminophen Oral tablet (Electronically signed by Isaías Olvera MD 06/17/2016 21:43)
--- NOTE | 2016-06-17 21:43 | ED MAR SUMMARY ---
..... Medication Administration Record [facility] [address] [id number] Patient: PRASAD SHERWOOD Visit ID: [id number] 26y, M Weight: 117.9 kg Height/Length: 77 in BMI: 30.8 ALLERGIES: No Known Drug Allergy
== END 2016-06-16 14:30 | disposition home or self-care (01) ==
LOC: ED SRH 13:55
DX: K02.9 Dental caries, unspecified (principal); K04.7 Periapical abscess without sinus; F17.210 Nicotine dependence, cigarettes, uncomplicated

== ENCOUNTER 2016-06-25 19:17 | Emergency (ER) | payer OTHER ==
--- NOTE | 2016-06-25 19:44 | ED ORDER SUMMARY ---
..... Patient: PRASAD SHERWOOD OrderSheet [facility] VisitID: [id number] [place] [address] 26y, M Registration Date/Time: 06/25/2016 ORDER SHEET Weight: 107.9 kg (stated) Allergies: No Known Drug Allergy GENERAL ORDERS: MEDICATION ORDERS: Clindamycin PO 450 mg (once now) (19:38 06/25/2016 Abilio Keller) (19:42 Evelio Priest) IV FLUIDS: ORDER SHEET NOTES: [Electronically signed by David Ball R.N. (20:27 06/25/2016)] [Electronically signed by Tucker Higgins Dr. (06:40 06/28/2016)] [Electronically locked/signed by David Ball R.N. (20:27 06/25/2016)]
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
--- NOTE | 2016-06-25 19:44 | ED CLINICAL REPORT ---
Clinical Report - Physicians/Mid Levels [facility] [address] [place] [address] 06/25/2016 19:18 Patient: PRASAD SHERWOOD Time Seen: 1930. Arrived- By private vehicle. Historian- patient. HISTORY OF PRESENT ILLNESS Chief Complaint: DENTAL PAIN. This started a few weeks ago and is still present (unchanged). It was abrupt in onset and has been constant but is not gone now. Pain described as moderate. The patient has had toothache and facial pain. (diagnosed with dental infection recently. went to see the dentist. states they told him the "infection" is still there and needs to go back to the emergency department.). Similar symptoms previously: Many times. Recent medical care: The patient was seen recently in the emergency department (reports having a few days of penicillin that has not helped.). REVIEW OF SYSTEMS No fever, nausea or vomiting. All systems otherwise negative, except as recorded above. PAST HISTORY See nurses notes. tetanus is up to date. SOCIAL HISTORY Smoker- current status unknown. No alcohol use or drug use. No recent travel. 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 ADDITIONAL NOTES The nursing notes have been reviewed. PHYSICAL EXAM Vital Signs: 06/25/2016 19:36 BP: 124/71. HR: 107. RR: 16. O2 saturation: 98%. Temp: 98.8 F. Pain level now: 4/10. Blood pressure normal. Oxygen saturation normal. Appearance: Alert. No acute distress. Head: Normal external inspection. Eyes: Pupils equal, round and reactive to light. Conjunctivae and eyelids normal. ENT: Mild, extensive dental decay. Ears normal. Nose normal. Pharynx normal. Lips normal. Uvula midline. No peritonsillar mass, muffled or hoarse voice or drooling. The mucous membranes are not dry. (abscess with pustule at the proximal right maxillary premolars). Neck: Trachea midline. No adenopathy. CVS: Normal heart rate and rhythm. Heart sounds normal. Pulses normal. Respiratory: No respiratory distress. Breath sounds normal. Chest nontender. Abdomen: Soft and nontender. No organomegaly. PROGRESS AND PROCEDURES Course of Care: The patient is a pleasant 26 yo presenting for evaluation of dental pain. Patient has been evaluated for retropharyngeal abscess, Ludwigs angina, acute necrotizing ulcerative gingivitis, and peritonsillar abscess. The exam findings are not consistent with any of these etiologies. Evidence for dental pain noted on examination. No concern for airway compromise at this time. Patient appears nontoxic. Vital signs are otherwise unremarkable. Do not feel patient is septic at this time. Patient be managed conservatively at this time with antibiotics and nonsteroidal anti-inflammatory medications as tolerated. Patient be instructed to avoid nonsteroidal anti-inflammatory medications if theyre allergic or have intolerances. Did not feel patient needs to be admitted to the hospital or require further emergency department workup/evaluation. Encouraged patient to follow up with the dentist as soon as possible ideally within the next 2 or 3 days. Has appointment tomorrow which she is encouraged to keep. Reviewed risks and benefits of the procedure. Patient declines at this time. Patient has been reevaluated. No evidence of airway compromise. Patient continues to be nontoxic and in no acute distress. I discussed the patient workup, diagnosis, home care, follow-up, and return precautions. All questions answered. The patient expressed understanding of these instructions and was agreeable to them. Disposition: Discharged. Condition: good. CLINICAL IMPRESSION Dental caries (extensive decay) (acute right maxillary teeth). Periapical dental abscess. No sinus tract. acute right sided facial pain. INSTRUCTIONS Warnings: GENERAL WARNINGS: Return or contact your physician immediately if your condition worsens or changes unexpectedly, if not improving as expected, or if other problems arise. Specifically return if pain, vomiting, bleeding, breathing difficulty or fever. Your Current Medications: CONTINUE TAKING THE FOLLOWING MEDICATIONS: Hydrocodone-Acetaminophen Oral. Penicillin*. Prescription Medications: Clindamycin every 8 hours for 10 days. No refill. (450 mg PO. Disp suff quant. substitution allowed.) Percocet 5 mg/325 mg: take 1 tablet orally every 6 hours as needed for pain. Dispense twelve (12). No refill. Substitution is permissible. Follow-up: Return to the emergency department as needed. Follow up with a specialist Your dentist in three days. Reason for referral: recheck today's concerns. Summary of care provided to patient via paper. Follow up with your doctor in three days. Reason for referral: recheck today's concerns. Summary of care provided to patient via paper. Screening today revealed the patient's blood pressure to be in the normal range. The patient should follow up with a primary care provider for blood pressure management. Understanding of the discharge instructions verbalized by patient. (Electronically signed by Tucker Higgins Dr. 06/28/2016 6:41)
--- NOTE | 2016-06-25 19:44 | ED ORDER SUMMARY ---
..... Patient: PRASAD SHERWOOD OrderSheet [facility] VisitID: [id number] [place] [address] 26y, M Registration Date/Time: 06/25/2016 ORDER SHEET Weight: 107.9 kg (stated) Allergies: No Known Drug Allergy GENERAL ORDERS: MEDICATION ORDERS: Clindamycin PO 450 mg (once now) (19:38 06/25/2016 Abilio Keller) (19:42 Evelio Priest) IV FLUIDS: ORDER SHEET NOTES: [Electronically signed by David Ball R.N. (20:27 06/25/2016)] [Electronically signed by Tucker Higgins Dr. (06:40 06/28/2016)] [Electronically locked/signed by David Ball R.N. (20:27 06/25/2016)]
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
--- NOTE | 2016-06-28 06:41 | ED MED RECONCILIATION SUMMARY ---
Patient: PRASAD SHERWOOD Medication Reconciliation Report [facility] VisitID: [id number] [address] [place] [address] 26y, M Registration Date/Time: 06/25/2016 Weight: 107.9 kg Height/Length: 71 in. BMI: 33.2 ALLERGIES: No Known Drug Allergy The patient's Home Medications are listed below: CONTINUE TAKING THE FOLLOWING MEDICATIONS: Hydrocodone-Acetaminophen Oral Penicillin The source(s) of the original Home Medication information: Not obtained. The following Medications were given to the patient in the Emergency Department: Clindamycin [PO] PO 150 mg, administered: 06/25/2016 7:42:00 PM The following Medications were prescribed to the patient: Clindamycin every 8 hours for 10 days. No refill.(450 mg PO. Disp suff quant. substitution allowed.) -- Tucker Higgisn Dr. Percocet 5 mg/325 mg: take 1 tablet orally every 6 hours as needed for pain. Dispense twelve (12). No refill. Substitution is permissible. -- Tucker Higgins Dr.
--- NOTE | 2016-06-28 06:41 | ED MAR SUMMARY ---
..... Medication Administration Record [facility] [address] [place] [address] Patient: PRASAD SHERWOOD Visit ID: [id number] 26y, M Weight: 107.9 kg Height/Length: 71 in BMI: 33.2 ALLERGIES: No Known Drug Allergy Given 19:42 06/25/2016 David Ball R.N. Medication Administered: CLINDAMYCIN [PO], Dose: 150 mg Capsules PO. Medication Ordered: Clindamycin PO 450 mg (once now).
--- NOTE | 2016-06-28 06:41 | ED DISCHARGE INSTRUCTIONS ---
Patient: PRASAD SHERWOOD General Instructions [facility] VisitID: [id number] [place] [address] 26y, M Registration Date/Time: 06/25/2016 Dental caries (extensive decay) (acute right maxillary teeth). Periapical dental abscess. No sinus tract. acute right sided facial pain. INSTRUCTIONS Warnings: GENERAL WARNINGS: Return or contact your physician immediately if your condition worsens or changes unexpectedly, if not improving as expected, or if other problems arise. Specifically return if pain, vomiting, bleeding, breathing difficulty or fever. Your Current Medications: CONTINUE TAKING THE FOLLOWING MEDICATIONS: Hydrocodone-Acetaminophen Oral. Penicillin*. Prescription Medications: Clindamycin every 8 hours for 10 days. No refill. (450 mg PO. Disp suff quant. substitution allowed.) Percocet 5 mg/325 mg: take 1 tablet orally every 6 hours as needed for pain. Dispense twelve (12). No refill. Substitution is permissible. Follow-up: Return to the emergency department as needed. Follow up with a specialist Your dentist in three days. Reason for referral: recheck today's concerns. Summary of care provided to patient via paper. Follow up with your doctor in three days. Reason for referral: recheck today's concerns. Summary of care provided to patient via paper. Screening today revealed the patient's blood pressure to be in the normal range. The patient should follow up with a primary care provider for blood pressure management. Understanding of the discharge instructions verbalized by patient. ADDITIONAL INFORMATION Dental Cavity A dental cavity is a pit or crater in the enamel surface of the tooth. This exposes the sensitive inner layer of the tooth and causes pain. If untreated, the cavity will get bigger and may cause an infection or abscess in the root of the tooth. An infection in the tooth is a much more serious problem and may require a root canal or removal of the entire tooth. The tooth pain may be made worse by drinking hot or cold fluids. It may spread from the tooth to the ear or jaw on the same side. Home Care: Avoid hot and cold foods, and liquids since your tooth may be sensitive to temperature changes. If your tooth is chipped or cracked, or if there is a large open cavity, apply OIL OF CLOVES (available ychi-erc-dwursun in drug stores) directly to the tooth to reduce pain. Some pharmacies carry an ynhr-tjf-ggupwod "toothache kit." This contains oil of cloves and a paste, which can be applied over the exposed tooth to decrease sensitivity. An ice pack on your jaw over the sore area may help to reduce pain. You may use acetaminophen (Tylenol) or ibuprofen (Motrin, Advil) to control pain, unless another pain medicine was prescribed. [ NOTE: If you have liver disease or ever had a stomach ulcer, talk with your doctor before using these medicines.] If you have signs of an infection, an antibiotic will be given. Take it as directed. Follow-Up with your dentist as directed. Although your pain may go away with the treatment given, only a dentist can fully evaluate and treat this problem to prevent further tooth damage. Get Prompt Medical Attention if any of the following occur: Redness or swelling of the face Pain worsens or spreads to the neck Fever over 100.5 F (38C) Unusual drowsiness; headache or stiff neck; weakness or fainting Pus drains from the tooth or gum Difficulty swallowing or breathing Dental Abscess A dental abscess is an infection of the tooth socket. It often starts with a crack or cavity in the tooth. A pocket of pus forms between the tooth and the bone. The infection causes pain and swelling of the gum, cheek or jaw. The pain is often made worse by drinking hot or cold fluids, or biting on hard foods. Pain may be felt in the facial sinus or in the ear. A severe infection can interfere with swallowing and breathing. In the emergency department or clinic, you will be started on an antibiotic. However, final treatment requires drainage of the pus. This can be done by removing the tooth or performing a root canal. A root canal is done by an oral surgeon and involves drilling an opening in the tooth to drain the pus. After the infection has healed, a crown is placed over the tooth. Home care The following guidelines will help you care for your abscess at home: Avoid hot and cold foods and liquids since your tooth may be sensitive to temperature changes. If your tooth is chipped or cracked, or if there is a large open cavity, applyoil of cloves(available ducf-egb-qcabwdc in drug stores) directly to the tooth to reduce pain. Some pharmacies carry an wlwl-nec-mouycsm "toothache kit". This contains oil of cloves and a paste, which can be applied over the exposed tooth to decrease sensitivity. Apply an ice pack (ice cubes in a plastic bag, wrapped in a towel) over the injured area for 20 minutes every 12 hours the first day for pain relief. Continue this 34 times a day until the pain and swelling goes away. You may use acetaminophen or ibuprofen to control pain, unless another medicine was prescribed. If you have chronic liver or kidney disease or ever had a stomach ulcer or GI bleeding, talk with your doctor before using these medicines. An antibiotic will be prescribed. Take it as directed until completed, even if you are feeling better sooner. Follow-up care Follow up as directed with a dentist or oral surgeon. Even though your pain may improve with the treatment given today, only a dentist or oral surgeon can provide full treatment for this problem. When to seek medical care Get prompt medical attention or contact your doctor if any of the following occur: Your face or eyelid becomes swollen or red Pain worsens or spreads to the neck Fever over 100.4F (38.0C) Unusual drowsiness; headache or stiff neck; weakness, or fainting Pus drains from the gum or tooth Difficulty talking, swallowing or breathing Unable to open your mouth wide Clindamycin Hydrochloride Oral capsule What is this medicine? CLINDAMYCIN (KLIN da AGNES sin) is a lincosamide antibiotic. It is used to treat certain kinds of bacterial infections. It will not work for colds, flu, or other viral infections. How should I use this medicine? Take this medicine by mouth with a full glass of water. Follow the directions on the prescription label. You can take this medicine with food or on an empty stomach. If the medicine upsets your stomach, take it with food. Take your medicine at regular intervals. Do not take your medicine more often than directed. Take all of your medicine as directed even if you think your are better. Do not skip doses or stop your medicine early. Talk to your test automation architect regarding the use of this medicine in children. Special care may be needed. What side effects may I notice from receiving this medicine? Side effects that you should report to your doctor or health pharmacist critical care as soon as possible: allergic reactions like skin rash, itching or hives, swelling of the face, lips, or tongue dark urine pain on swallowing redness, blistering, peeling or loosening of the skin, including inside the mouth unusual bleeding or bruising unusually weak or tired yellowing of eyes or skin Side effects that usually do not require medical attention (report to your doctor or health pharmacist critical care if they continue or are bothersome): diarrhea itching in the rectal or genital area joint pain nausea, vomiting stomach pain What may interact with this medicine? chloramphenicol erythromycin kaolin products What if I miss a dose? If you miss a dose, take it as soon as you can. If it is almost time for your next dose, take only that dose. Do not take double or extra doses. Where should I keep my medicine? Keep out of the reach of children. Store at room temperature between 20 and 25 degrees C (68 and 77 degrees F). Throw away any unused medicine after the expiration date. What should I tell my health care provider before I take this medicine? They need to know if you have any of these conditions: kidney disease liver disease stomach problems like colitis an unusual or allergic reaction to clindamycin, lincomycin, or other medicines, foods, dyes like tartrazine or preservatives or trying to get breast-feeding What should I watch for while using this medicine? Tell your doctor or healthcare professional if your symptoms do not start to get better or if they get worse. Do not treat diarrhea with over the counter products. Contact your doctor if you have diarrhea that lasts more than 2 days or if it is severe and watery. Oxycodone Hydrochloride, Acetaminophen Oral tablet What is this medicine? ACETAMINOPHEN; OXYCODONE (a set a TETE moraima fen; ox i KOE done) is a pain reliever. It is used to treat mild to moderate pain. How should I use this medicine? Take this medicine by mouth with a full glass of water. Follow the directions on the prescription label. Take your medicine at regular intervals. Do not take your medicine more often than directed. Talk to your test automation architect regarding the use of this medicine in children. Special care may be needed. Patients over 65 years old may have a stronger reaction and need a smaller dose. What side effects may I notice from receiving this medicine? Side effects that you should report to your doctor or health pharmacist critical care as soon as possible: allergic reactions like skin rash, itching or hives, swelling of the face, lips, or tongue breathing difficulties, wheezing confusion light headedness or fainting spells severe stomach pain yellowing of the skin or the whites of the eyes Side effects that usually do not require medical attention (report to your doctor or health pharmacist critical care if they continue or are bothersome): dizziness drowsiness nausea vomiting What may interact with this medicine? alcohol antihistamines barbiturates like amobarbital, butalbital, butabarbital, methohexital, pentobarbital, phenobarbital, thiopental, and secobarbital benztropine drugs for bladder problems like solifenacin, trospium, oxybutynin, tolterodine, hyoscyamine, and methscopolamine drugs for breathing problems like ipratropium and tiotropium drugs for certain stomach or intestine problems like propantheline, homatropine methylbromide, glycopyrrolate, atropine, belladonna, and dicyclomine general anesthetics like etomidate, ketamine, nitrous oxide, propofol, desflurane, enflurane, halothane, isoflurane, and sevoflurane medicines for depression, anxiety, or psychotic disturbances medicines for sleep muscle relaxants naltrexone narcotic medicines (opiates) for pain phenothiazines like perphenazine, thioridazine, chlorpromazine, mesoridazine, fluphenazine, prochlorperazine, promazine, and trifluoperazine scopolamine tramadol trihexyphenidyl What if I miss a dose? If you miss a dose, take it as soon as you can. If it is almost time for your next dose, take only that dose. Do not take double or extra doses. Where should I keep my medicine? Keep out of the reach of children. This medicine can be abused. Keep your medicine in a safe place to protect it from theft. Do not share this medicine with anyone. Selling or giving away this medicine is dangerous and against the law. Store at room temperature between 20 and 25 degrees C (68 and 77 degrees F). Keep container tightly closed. Protect from light. This medicine may cause accidental overdose and if it is taken by other adults, children, or pets. Flush any unused medicine down the toilet to reduce the chance of harm. Do not use the medicine after the expiration date. What should I tell my health care provider before I take this medicine? They need to know if you have any of these conditions: brain tumor Crohn's disease, inflammatory bowel disease, or ulcerative colitis drink more than 3 alcohol containing drinks per day drug abuse or addiction head injury heart or circulation problems kidney disease or problems going to the bathroom liver disease lung disease, asthma, or breathing problems an unusual or allergic reaction to acetaminophen, oxycodone, other opioid analgesics, other medicines, foods, dyes, or preservatives or trying to get breast-feeding What should I watch for while using this medicine? Tell your doctor or health pharmacist critical care if your pain does not go away, if it gets worse, or if you have new or a different type of pain. You may develop tolerance to the medicine. Tolerance means that you will need a higher dose of the medication for pain relief. Tolerance is normal and is expected if you take this medicine for a long time. Do not suddenly stop taking your medicine because you may develop a severe reaction. Your body becomes used to the medicine. This does NOT mean you are addicted. Addiction is a behavior related to getting and using a drug for a non-medical reason. If you have pain, you have a medical reason to take pain medicine. Your doctor will tell you how much medicine to take. If your doctor wants you to stop the medicine, the dose will be slowly lowered over time to avoid any side effects. You may get drowsy or dizzy. Do not drive, use machinery, or do anything that needs mental alertness until you know how this medicine affects you. Do not stand or sit up quickly, especially if you are an older patient. This reduces the risk of dizzy or fainting spells. Alcohol may interfere with the effect of this medicine. Avoid alcoholic drinks. There are different types of narcotic medicines (opiates) for pain. If you take more than one type at the same time, you may have more side effects. Give your health care provider a list of all medicines you use. Your doctor will tell you how much medicine to take. Do not take more medicine than directed. Call emergency for help if you have problems breathing. The medicine will cause constipation. Try to have a bowel movement at least every 2 to 3 days. If you do not have a bowel movement for 3 days, call your doctor or health pharmacist critical care. Do not take Tylenol (acetaminophen) or medicines that have acetaminophen with this medicine. Too much acetaminophen can be very dangerous. Many nonprescription medicines contain acetaminophen. Always read the labels carefully to avoid taking more acetaminophen. You have been given the following additional information: Dental Cavity Tooth Abscess Clindamycin Hydrochloride Oral capsule Oxycodone Hydrochloride, Acetaminophen Oral tablet (Electronically signed by Tucker Higgins Dr. 06/28/2016 6:41)
--- NOTE | 2016-06-28 06:41 | ED MAR SUMMARY ---
..... Medication Administration Record [facility] [address] [place] [address] Patient: PRASAD SHERWOOD Visit ID: [id number] 26y, M Weight: 107.9 kg Height/Length: 71 in BMI: 33.2 ALLERGIES: No Known Drug Allergy Given 19:42 06/25/2016 David Ball R.N. Medication Administered: CLINDAMYCIN [PO], Dose: 150 mg Capsules PO. Medication Ordered: Clindamycin PO 450 mg (once now).
--- NOTE | 2016-06-28 06:41 | ED MED RECONCILIATION SUMMARY ---
Patient: PRASAD SHERWOOD Medication Reconciliation Report [facility] VisitID: [id number] [address] [place] [address] 26y, M Registration Date/Time: 06/25/2016 Weight: 107.9 kg Height/Length: 71 in. BMI: 33.2 ALLERGIES: No Known Drug Allergy The patient's Home Medications are listed below: CONTINUE TAKING THE FOLLOWING MEDICATIONS: Hydrocodone-Acetaminophen Oral Penicillin The source(s) of the original Home Medication information: Not obtained. The following Medications were given to the patient in the Emergency Department: Clindamycin [PO] PO 150 mg, administered: 06/25/2016 7:42:00 PM The following Medications were prescribed to the patient: Clindamycin every 8 hours for 10 days. No refill.(450 mg PO. Disp suff quant. substitution allowed.) -- Tucker Higgins Dr. Percocet 5 mg/325 mg: take 1 tablet orally every 6 hours as needed for pain. Dispense twelve (12). No refill. Substitution is permissible. -- Tucker Higgins Dr.
== END 2016-06-25 20:05 | disposition home or self-care (01) ==
LOC: ED SRH 19:17
DX: K02.9 Dental caries, unspecified (principal); K04.4 Acute apical periodontitis of pulpal origin; G50.1 Atypical facial pain